=== PATIENT | male | born 1950 | race Caucasian/White ===

== ENCOUNTER 2018-02-08 07:08 | Outpatient (CLI) | payer MEDICARE, OTHER ==
[2018-02-08 14:13] LABS: ALBUMIN 4.1 g/dL (3.2-5.5); ALBUMIN/GLOBULIN RATIO 1.5 (1.0-2.2); ALKALINE PHOSPHATASE 37 IU/L (42-121); ALT ALANINE AMINOTRANSFERASE 23 IU/L (10-60); AST ASPARTATE AMINOTRANSFERASE 23 IU/L (10-42); BILIRUBIN,TOTAL 0.9 mg/dL (0.2-1.0); BUN - BLOOD UREA NITROGEN 27 mg/dL (6-20); CARBON DIOXIDE - CO2 26 mmol/L (21-32); CHLORIDE 106 mmol/L (101-111); CHOL/HDL RATIO 3.9 (<5.0); CHOLESTEROL 212 mg/dL; CREATININE 1.1 mg/dL (0.6-1.2); GFR - MDRD 67 (>89); GLUCOSE 108 mg/dL (70-100); HDL CHOLESTEROL 55 mg/dL; LDL CHOLESTEROL,CALCULATED 128 mg/dL; LDL/HDL RATIO 2.3 (<3.6); SODIUM 138 mmol/L (135-145); TOTAL PROTEIN 6.9 g/dL (6.7-8.2); VLDL CHOLESTEROL 29 mg/dL
== END 2018-02-08 07:09 | disposition home or self-care (01) ==
LOC: LAB.F 07:08
PROVIDERS: ATTEND Internal Medicine
DX: R97.20 Elevated prostate specific antigen [PSA] (principal); I10 Essential (primary) hypertension
CPT/HCPCS: 36415; 80053; 80061; 83721; 84153

== ENCOUNTER 2018-09-30 20:46 | Emergency (ER) | payer MEDICARE, OTHER ==
--- NOTE | 2018-09-30 21:05 | ED Physician Documentation ---
History of Present Illness - Stated complaint Stated Complaint: HIGH BP - Chief complaint Chief Complaint: Neuro - History obtained from History obtained from: Patient - History of Present Illness Timing: Prior to arrival - Additonal information Additional information: This is a 68-year-old man who presents with complaints that his blood pressure spiked tonight. He has been feeling off for about a week just, having some intermittent headachesHe felt fine this morning in fact [place] and a little bit lightheaded.. Around 2:00 in the afternoon he noticed that he had a headache when he stood up so he decided to check his blood pressure which normally runs in the 140s over 80s and it was like 193/91. He subsequently checked it several times and it remained elevated he even went to [facility] to make sure that his machine was working properly and checked it there. He took his lisinopril 20 mg at 5:30 in the evening. He is been on that for 10 years. When his blood pressure remained elevated he took an additional half tablet of the lisinopril around 7:00. Patient was in [facility] at the end of July for a TURP and at that time his blood pressure was normal. He does not remember checking it since then however his INR was 3.7 last week and they adjusted his Coumadin dosing. 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 He denies chest pain or shortness of breath. He said no nausea or vomiting. He has been very fatigued. One day this past week he woke up with a swollen painful foot he still has a little bit of discomfort in it but the swelling has resolved. Patient does have a history of A. fib but underwent ablation in 2007 without recurrence. He does drink 1 cup of coffee every day. 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 Review of Systems Constitutional: reports: Fatigue. denies: Fever Eyes: denies: Decreased vision Nose: denies: Rhinorrhea / runny nose Throat: denies: Sore throat Cardiac: denies: Chest pain / pressure, Palpitations, Pedal edema Respiratory: denies: Dyspnea, Cough GI: denies: Nausea, Vomiting : denies: Dysuria Skin: denies: Rash Musculoskeletal: reports: Joint pain (Left ankle now resolved) Neurologic: denies: Focal weakness, Numbness Endocrine: reports: Easy bruising / bleeding (Patient does take Coumadin) Immunocompromised: denies: Immunocompromised PD PAST MEDICAL HISTORY - Allergies Allergies/Adverse Reactions: Allergies Allergy/AdvReac Type Severity Reaction Status Date / Time No Known Drug Allergies Allergy Verified 09/30/18 20:52 PD ED PE NORMAL - Vitals Vital signs reviewed: Yes - General General: Alert and oriented X 3, No acute distress, Well developed/nourished - HEENT HEENT: Atraumatic, PERRL, EOMI, Moist mucous membranes - Neck Neck: Supple, no meningeal sign, No adenopathy, No JVD - Cardiac Cardiac: RRR, No murmur - Respiratory Respiratory: No respiratory distress, Clear bilaterally - Abdomen Abdomen: Normal bowel sounds, Soft, Non tender - Derm Derm: Normal color, Warm and dry, No rash - Extremities Extremities: No edema - Neuro Neuro: Alert and oriented X 3, 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, No motor deficit, No sensory deficit, Normal speech - Psych Psych: Normal mood, Normal affect Results - Vitals Vitals: Vital Signs - 24 hr 09/30/18 09/30/18 09/30/18 20:49 21:14 21:26 Temperature 36.2 C L Heart Rate 62 83 60 Respiratory 16 16 12 Rate Blood Pressure 213/90 H 193/93 H 175/90 H O2 Saturation 98 97 97 Oxygen O2 Source Room air - EKG (time done) 2229 Rate: Rate (enter#) Rhythm: NSR Intervals: RBBB Ischemia: Non specific changes Compare to prior EKG: Old EKG unavailable Computer interpretation: Agree with computer - Labs Labs: Laboratory Tests 09/30/18 09/30/18 09/30/18 21:11 21:11 21:11 WBC 7.0 RBC 4.87 Hgb 15.0 Hct 46.6 MCV 95.7 H MCH 30.8 MCHC 32.2 RDW 14.0 Plt Count 167 MPV 10.1 Neut # (Auto) 3.8 Lymph # (Auto) 2.1 [place] # (Auto) 0.8 Eos # (Auto) 0.2 Baso # (Auto) 0.1 Absolute Nucleated RBC 0.00 Nucleated RBC % 0.0 PT 25.8 H INR 2.3 H Sodium 141 Potassium 3.8 Chloride 102 Carbon Dioxide 26 Anion Gap 13.0 BUN 28 H Creatinine 1.1 Estimated GFR (MDRD) 67 L Glucose 102 H Calcium 9.9 Urine Color Urine Clarity Urine pH Ur Specific [place] Urine Protein Urine Glucose (UA) Urine Ketones Urine Occult Blood Urine Nitrite Urine Bilirubin Urine Urobilinogen Ur Leukocyte Esterase Urine RBC Urine WBC Ur Squamous Epith Cells Urine Bacteria Ur Microscopic Review Urine Culture Comments 09/30/18 22:08 WBC RBC Hgb Hct MCV MCH MCHC RDW Plt Count MPV Neut # (Auto) Lymph # (Auto) [place] # (Auto) Eos # (Auto) Baso # (Auto) Absolute Nucleated RBC Nucleated RBC % PT INR Sodium Potassium Chloride Carbon Dioxide Anion Gap BUN Creatinine Estimated GFR (MDRD) Glucose Calcium Urine Color YELLOW Urine Clarity CLEAR Urine pH 6.0 Ur Specific [place] 1.015 Urine Protein NEGATIVE Urine Glucose (UA) NEGATIVE Urine Ketones NEGATIVE Urine Occult Blood MODERATE H Urine Nitrite NEGATIVE Urine Bilirubin NEGATIVE Urine Urobilinogen 0.2 (NORMAL) Ur Leukocyte Esterase TRACE H Urine RBC 0-5 Urine WBC 4-5 Ur Squamous Epith Cells NONE SEEN Urine Bacteria None Seen Ur Microscopic Review INDICATED Urine Culture Comments INDICATED PD MEDICAL DECISION MAKING - ED course Complexity details: reviewed results, re-evaluated patient, d/w patient, d/w family ED course: Patient does have a bundle branch block on his EKG. There is no old one available for comparison. He is not aware of having had one previously. Does not appear to have any ischemic changes. BUN and creatinine are essentially normal minimal elevation of electrolytes. Pro time was 2.3. Urine is clear without protein in it. He was given clonidine 0.1 mg orally and repeat blood pressures came down into 160 systolic. With a lengthy discussion about why his blood pressure could have now be up versus him being on the lisinopril for the past 10 years without any difficulty. Encouraged him to keep a log of his blood pressures through the weekend and follow-up with his primary care provider next week to see whether or not he needs to have adjustments made on his medication. Departure - Departure Disposition: 01 Home, Self Care Clinical Impression: Headache Qualifiers: Headache type: unspecified Headache chronicity pattern: unspecified pattern Hypertension Qualifiers: Hypertension type: essential hypertension Qualified Code(s): I10 - Essential (primary) hypertension Condition: Good Instructions: ED HTN Established Follow-Up: John Rachel MD [Primary Care Provider] - Comments: Continue to take your normal dose of lisinopril. I would only monitor your blood pressures twice a day the morning and evening and take a log with you to your doctor's appointment next week for discussion on whether or not you need to adjust your hypertension medicine. Return if you have increasing headache, develop chest pain or shortness of breath, you are not urinating or other problems or
[2018-09-30 21:15] LABS: BASOPHILS # (AUTO) 0.1 10^3/uL (0.0-0.1); BASOPHILS % (AUTO) 0.9 %; EOSINOPHILS # (AUTO) 0.2 10^3/uL (0.0-0.7); EOSINOPHILS % (AUTO) 2.7 %; LYMPHOCYTES # (AUTO) 2.1 10^3/uL (1.5-3.5); LYMPHOCYTES % (AUTO) 30.3 %; MEAN CORPUSCULAR HEMOGLOBIN 30.8 pg (27.0-31.0); MEAN CORPUSCULAR HGB CONC 32.2 g/dL (32.0-36.0); MEAN CORPUSCULAR VOLUME 95.7 fL (80.0-94.0); MEAN PLATELET VOLUME 10.1 fL (7.4-11.4); MONOCYTES # (AUTO) 0.8 10^3/uL (0.0-1.0); NEUTROPHILS # (AUTO) 3.8 10^3/uL (1.5-6.6); NEUTROPHILS % (AUTO) 53.8 %; PLT - PLATELET COUNT 167 10^3/uL (130-450); RED BLOOD COUNT 4.87 10^6/uL (4.70-6.10)
[2018-09-30] MEDS ORDERED: cloNIDine 0.1 MG TABLET PO STA (21:21)
[2018-09-30 21:26] LABS: CALCIUM 9.9 mg/dL (8.5-10.3); CREATININE 1.1 mg/dL (0.6-1.2)
[2018-09-30 21:35] LABS: INR 2.3 (0.8-1.2); PT - PROTHROMBIN TIME 25.8 secs (9.9-12.6)
[2018-09-30 22:31] LABS: BILIRUBIN,URINE NEGATIVE (NEGATIVE); GLUCOSE, URINE (UA) NEGATIVE (NEGATIVE); KETONES,URINE (UA) NEGATIVE (NEGATIVE); LEUKOCYTE ESTERASE, URINE TRACE (NEGATIVE); NITRITE,URINE NEGATIVE (NEGATIVE); OCCULT BLOOD,URINE MODERATE (NEGATIVE); PROTEIN,URINE NEGATIVE (NEGATIVE); UROBILINOGEN,URINE 0.2 (NORMAL) E.U./dL (NORMAL)
[2018-09-30 22:33] LABS: CLARITY,URINE CLEAR (CLEAR)
[2018-09-30 22:48] LABS: BACTERIA,URINE None Seen /HPF (None Seen); RBC,URINE 0-5 /HPF (0-5); SQUAMOUS EPITHELIAL CELL,UR NONE SEEN (<= Few)
[2018-09-30 23:03] VITALS: BP 153/85
== END 2018-09-30 23:05 | disposition home or self-care (01) ==
LOC: ED 20:46
DX: I10 Essential (primary) hypertension (principal); R51 Headache; I45.2 Bifascicular block; M25.572 Pain in left ankle and joints of left foot; D68.8 Other specified coagulation defects; Z79.01 Long term (current) use of anticoagulants
CPT/HCPCS: 36415; 80048; 81001; 85025; 85610; 87086; 93005; 99283; 99284; A9270; 81003

== ENCOUNTER 2021-06-02 08:52 | Day surgery (SDC) | payer MEDICARE, OTHER ==
[2021-06-02 09:29] LABS: BASOPHILS # (AUTO) 0.1 10^3/uL (0.0-0.1); BASOPHILS % (AUTO) 0.7 %; EOSINOPHILS # (AUTO) 0.1 10^3/uL (0.0-0.7); EOSINOPHILS % (AUTO) 1.1 %; HCT - HEMATOCRIT 50.9 % (42.0-52.0); LYMPHOCYTES # (AUTO) 1.5 10^3/uL (1.5-3.5); LYMPHOCYTES % (AUTO) 14.3 %; MEAN CORPUSCULAR HEMOGLOBIN 31.8 pg (27.0-31.0); MEAN CORPUSCULAR HGB CONC 33.4 g/dL (32.0-36.0); MEAN CORPUSCULAR VOLUME 95.1 fL (80.0-94.0); MEAN PLATELET VOLUME 9.8 fL (7.4-11.4); MONOCYTES % (AUTO) 10.1 %; NEUTROPHILS # (AUTO) 7.5 10^3/uL (1.5-6.6); NEUTROPHILS % (AUTO) 73.4 %; PLT - PLATELET COUNT 171 10^3/uL (130-450); RED BLOOD COUNT 5.35 10^6/uL (4.70-6.10); RED CELL DISTRIBUTION WIDTH 13.4 % (12.0-15.0); WHITE BLOOD COUNT 10.2 x10^3/uL (4.8-10.8)
[2021-06-02 09:44] LABS: ALBUMIN 4.4 g/dL (3.2-5.5); ALBUMIN/GLOBULIN RATIO 1.4 (1.0-2.2); BILIRUBIN,TOTAL 1.2 mg/dL (0.2-1.0); CALCIUM 9.4 mg/dL (8.5-10.3); CREATININE 1.3 mg/dL (0.6-1.2); POTASSIUM 4.4 mmol/L (3.5-5.0); TOTAL PROTEIN 7.6 g/dL (6.7-8.2)
[2021-06-02 10:07] LABS: BILIRUBIN,URINE NEGATIVE (NEGATIVE); CLARITY,URINE CLEAR (CLEAR); GLUCOSE, URINE (UA) NEGATIVE (NEGATIVE); KETONES,URINE (UA) NEGATIVE (NEGATIVE); LEUKOCYTE ESTERASE, URINE NEGATIVE (NEGATIVE); NITRITE,URINE NEGATIVE (NEGATIVE); OCCULT BLOOD,URINE NEGATIVE (NEGATIVE); PROTEIN,URINE NEGATIVE (NEGATIVE); UROBILINOGEN,URINE 0.2 (NORMAL) E.U./dL (NORMAL)
[2021-06-02] MEDS ORDERED: SODIUM CHLORIDE 0.9% 1,000 ML IV STA (11:17)
--- NOTE | 2021-06-02 11:20 | ED Physician Documentation ---
PD HPI ABD PAIN - Stated complaint Stated Complaint: ABD PX - Chief complaint Chief Complaint: Abd Pain - History obtained from History obtained from: Patient - Treatment prior to arrival Treatment prior to arrival: The patient comes to the emergency department chief complaint of right-sided abdominal pain over the last few days. He states it started 2 days ago when he did a big workout and then ate 2 bowls of chili. He figured he had just strained his abdominal musculature, but he states that the pain is gotten worse since. He denies any nausea, vomiting, or bowel changes. No urinary symptoms. No fevers or chills. No appetite change. He still has his gallbladder and appendix. Food does not seem to affect the symptoms. No other complaints at this time. Review of Systems Ten Systems: 10 systems reviewed and negative Constitutional: reports: Reviewed and negative Eyes: reports: Reviewed and negative Ears: reports: Reviewed and negative Nose: reports: Reviewed and negative Throat: reports: Reviewed and negative Cardiac: reports: Reviewed and negative Respiratory: reports: Reviewed and negative GI: reports: Abdominal Pain : reports: Reviewed and negative Skin: reports: Reviewed and negative Musculoskeletal: reports: Reviewed and negative Neurologic: reports: Reviewed and negative Psychiatric: reports: Reviewed and negative Endocrine: reports: Reviewed and negative Immunocompromised: reports: Reviewed and negative PD PAST MEDICAL HISTORY - Past Medical History Cardiovascular: Hypertension, Atrial fibrillation - Past Surgical History Past Surgical History: Yes Ortho: Knee replacement Cardiovascular: Other - Present Medications Home Medications: Ambulatory Orders Medication Instructions Recorded Confirmed Gabapentin [Neurontin] 300 mg PO HS 06/02/21 06/02/21 Lisinopril [Zestril] 20 mg PO DAILY 06/02/21 06/02/21 Ondansetron Odt [Zofran Odt] 4 mg TL Q6H PRN #10 tablet 06/02/21 Ondansetron Odt [Zofran Odt] 4 mg TL Q6H PRN #10 tablet 06/02/21 Pramipexole [Mirapex] 0.5 mg PO DAILY 06/02/21 06/02/21 Rivaroxaban [Xarelto] 20 mg PO DAILY 06/02/21 06/02/21 oxyCODONE [Roxicodone] 5 mg PO Q4-6H PRN #14 tablet 06/02/21 - Allergies Allergies/Adverse Reactions: Allergies Allergy/AdvReac Type Severity Reaction Status Date / Time No Known Drug Allergies Allergy Verified 06/02/21 09:08 - Social History Does the pt smoke?: No Smoking Status: Never smoker Does the pt drink ETOH?: Yes Does the pt have substance abuse?: No - Immunizations Immunizations are current?: No - POLST Patient has POLST: No PD ED PE NORMAL - Vitals Vital signs reviewed: Yes - General General: Alert and oriented X 3, No acute distress, Well developed/nourished - HEENT HEENT: Atraumatic, PERRL, EOMI, Moist mucous membranes - Neck Neck: Supple, no meningeal sign - Cardiac Cardiac: RRR, No murmur, Strong equal pulses - Respiratory Respiratory: No respiratory distress, Clear bilaterally - Abdomen Abdomen: Soft, Non distended, Other (Moderate right lower quadrant tenderness no rebound or guarding. Mild right flank tenderness. No right upper quadrant tenderness) - Back Back: No CVA TTP - Derm Derm: Normal color, Warm and dry, No rash - Extremities Extremities: No deformity, No edema, No calf tenderness / cord - Neuro Neuro: Alert and oriented X 3, rn clinical documentation 2-12 intact, No motor deficit, No sensory deficit, Normal speech - Psych Psych: Normal mood, Normal affect Results - Vitals Vitals: Vital Signs - 24 hr 06/02/21 06/02/21 06/02/21 09:05 11:08 13:00 Temperature 36.2 C L 36.7 C Heart Rate 74 66 78 Respiratory 12 16 15 Rate Blood Pressure 173/89 H 143/70 H 157/70 H O2 Saturation 96 99 99 06/02/21 06/02/21 06/02/21 15:23 15:32 15:35 Temperature 36.4 C L 36.3 C L 36.6 C Heart Rate 72 68 65 Respiratory 20 13 16 Rate Blood Pressure 120/90 H 139/77 H 138/68 H O2 Saturation 95 98 99 06/02/21 06/02/21 06/02/21 15:44 15:48 15:52 Temperature 36.9 C 36.9 C 36.6 C Heart Rate 68 65 64 Respiratory 16 14 16 Rate Blood Pressure 139/75 H 137/76 H 139/85 H O2 Saturation 95 96 99 06/02/21 06/02/21 06/02/21 16:12 16:36 16:57 Temperature 36.5 C 36.5 C 36.5 C Heart Rate 61 67 63 Respiratory 18 19 19 Rate Blood Pressure 132/66 H 150/70 H 133/70 H O2 Saturation 97 96 96 06/02/21 17:26 Temperature 36.5 C Heart Rate 65 Respiratory 18 Rate Blood Pressure 132/66 H O2 Saturation 96 Oxygen O2 Source Room air - Labs Labs: Laboratory Tests 06/02/21 06/02/21 06/02/21 09:24 09:24 09:42 WBC 10.2 RBC 5.35 Hgb 17.0 Hct 50.9 MCV 95.1 H MCH 31.8 H MCHC 33.4 RDW 13.4 Plt Count 171 MPV 9.8 Neut # (Auto) 7.5 H Lymph # (Auto) 1.5 [place] # (Auto) 1.0 Eos # (Auto) 0.1 Baso # (Auto) 0.1 Absolute Nucleated RBC 0.00 Nucleated RBC % 0.0 Sodium 137 Potassium 4.4 Chloride 100 L Carbon Dioxide 26 Anion Gap 11.0 BUN 23 H Creatinine 1.3 H Estimated GFR (MDRD) 54 L Glucose 109 H Calcium 9.4 Total Bilirubin 1.2 H AST 17 ALT 17 Alkaline Phosphatase 41 L Total Protein 7.6 Albumin 4.4 Globulin 3.2 Albumin/Globulin Ratio 1.4 Lipase 32 Urine Color YELLOW Urine Clarity CLEAR Urine pH 6.0 Ur Specific [place] <=1.005 Urine Protein NEGATIVE Urine Glucose (UA) NEGATIVE Urine Ketones NEGATIVE Urine Occult Blood NEGATIVE Urine Nitrite NEGATIVE Urine Bilirubin NEGATIVE Urine Urobilinogen 0.2 (NORMAL) Ur Leukocyte Esterase NEGATIVE Ur Microscopic Review NOT INDICATED Urine Culture Comments NOT INDICATED Nasal Adenovirus (PCR) Nasal B. parapertussis DNA (PCR) Nasal Coronavir 229E PCR Nasal Coronavir HKU1 PCR Nasal Coronavir NL63 PCR Nasal Coronavir OC43 PCR Nasal Enterovir/Rhinovir PCR Nasal Influenza B PCR Nasal Influenza A PCR Nasal Parainfluen 1 PCR Nasal Parainfluen 2 PCR Nasal Parainfluen 3 PCR Nasal Parainfluen 4 PCR Nasal RSV (PCR) Nasal B.pertussis DNA PCR Nasal C.pneumoniae (PCR) [place] Human Metapneumo PCR Nasal M.pneumoniae (PCR) Nasal SARS-CoV-2 (PCR) 06/02/21 13:11 WBC RBC Hgb Hct MCV MCH MCHC RDW Plt Count MPV Neut # (Auto) Lymph # (Auto) [place] # (Auto) Eos # (Auto) Baso # (Auto) Absolute Nucleated RBC Nucleated RBC % Sodium Potassium Chloride Carbon Dioxide Anion Gap BUN Creatinine Estimated GFR (MDRD) Glucose Calcium Total Bilirubin AST ALT Alkaline Phosphatase Total Protein Albumin Globulin Albumin/Globulin Ratio Lipase Urine Color Urine Clarity Urine pH Ur Specific [place] Urine Protein Urine Glucose (UA) Urine Ketones Urine Occult Blood Urine Nitrite Urine Bilirubin Urine Urobilinogen Ur Leukocyte Esterase Ur Microscopic Review Urine Culture Comments Nasal Adenovirus (PCR) NOT DETECTED Nasal B. parapertussis DNA (PCR) NOT DETECTED Nasal Coronavir 229E PCR NOT DETECTED Nasal Coronavir HKU1 PCR NOT DETECTED Nasal Coronavir NL63 PCR NOT DETECTED Nasal Coronavir OC43 PCR NOT DETECTED Nasal Enterovir/Rhinovir PCR NOT DETECTED Nasal Influenza B PCR NOT DETECTED Nasal Influenza A PCR NOT DETECTED Nasal Parainfluen 1 PCR NOT DETECTED Nasal Parainfluen 2 PCR NOT DETECTED Nasal Parainfluen 3 PCR NOT DETECTED Nasal Parainfluen 4 PCR NOT DETECTED Nasal RSV (PCR) NOT DETECTED Nasal B.pertussis DNA PCR NOT DETECTED Nasal C.pneumoniae (PCR) NOT DETECTED [place] Human Metapneumo PCR NOT DETECTED Nasal M.pneumoniae (PCR) NOT DETECTED Nasal SARS-CoV-2 (PCR) NOT DETECTED - Rads (name of study) CT abdomen and pelvis Radiology: Final report received, EMP read indepedently, See rad report (Acute appendicitis) PD MEDICAL DECISION MAKING - ED course Complexity details: reviewed results, re-evaluated patient, considered differential, d/w patient ED course: The patient was worked up with labs and CT scan of the abdomen and pelvis. He declined symptomatic treatment in the emergency department. The patient CT scan showed acute appendicitis. I consulted Dr. Fields, who saw the patient in the emergency department and agreed to admit him to her service. He was given a dose of Zosyn at her request. Departure - Departure Disposition: ED Transfer to [facility] Clinical Impression: Acute appendicitis Qualifiers: Acute appendicitis type: with localized peritonitis Appendicitis gangrene presence: without gangrene Appendicitis perforation presence: without perforation Appendicitis abscess presence: without abscess Qualified Code(s): K35.30 - Acute appendicitis with localized peritonitis, without perforation or gangrene Condition: Serious Discharge Date/Time: 06/02/21 14:22
[2021-06-02] MEDS ORDERED: IOVERSOL 320 100 ML VIAL IVP ONE ×2 (12:22→12:44)
--- NOTE | 2021-06-02 12:46 | CT Report ---
PROCEDURE: Abdomen/Pelvis W INDICATIONS: RLQ abd pain CONTRAST: IV CONTRAST: Optiray 320 ml: 100 PO CONTRAST: *NO PO CONTRAST TECHNIQUE: After the administration of intravenous contrast, 5 mm thick sections acquired from the diaphragms to the symphysis. 5 mm thick coronal and sagittal reformats were acquired. For radiation dose reducti on, the following was used: automated exposure control, adjustment of mA and/or kV according to [place] ent size. COMPARISON: None. FINDINGS: Image quality: Excellent. ABDOMEN: Lung bases: Lung bases are clear. Heart size is normal. Small hiatal hernia. Solid organs: Liver is normal in size. Enhancing focus in the right lobe of liver, (3/25). Question o f hepatic steatosis. Gallbladder is unremarkable. Biliary system is non dilated. Pancreas enhances normally. No splenomegaly. No adrenal nodules. Kidneys demonstrate normal size and enhancement, with out hydronephrosis. Peritoneum and bowel: No small bowel obstruction. A few colonic diverticuli. The appendix is dilated measuring 1.6 cm, (3/65). There is surrounding inflammatory change and wall thickening. No fluid gerda ection. No free air. Nodes and vessels: No retroperitoneal or mesenteric adenopathy by size criteria. Aorta and inferior vena cava are normal in size. Moderate plaque. Miscellaneous: No ventral hernias. PELVIS: Genitourinary: There is a small kidney stone in the region of the right UVJ measuring 0.3 cm, (385). No right hydroureter. Prostatomegaly. Miscellaneous: Right greater than left fat-containing inguinal hernias. No adenopathy. Bones: No suspicious bony lesions. No vertebral body compression fractures. IMPRESSION: 1. Acute appendicitis. No rupture demonstrated. 2. Kidney stone near the right UVJ measuring 0.3 cm. No right hydroureteronephrosis. 3. Enhancing focus in the liver. This is indeterminate but could represent a flash filling hemangioma . -This could be further characterized with liver MRI or multiphase liver CT. Ultrasound may be helpful . 4. Fat-containing inguinal hernias. Results were communicated to Dr. Bere Nogueira at 06/02/2021 11:44 AM JESUS. Reviewed by: Casey Jefferson MD on 06/02/2021 11:45 AM JESUS Approved by: Casey Jefferson MD on 06/02/2021 11:45 AM JESUS Station ID: [id number]
--- NOTE | 2021-06-02 13:08 | HISTORY & PHYSICAL EXAMINATION ---
HPI - Admitted From Admitted from: ED - History Obtained From History obtained from: Patient Exam limitations: No limitations - History of Present Illness Pain/Problem Location Description: Right lower quadrant pain Severity at the worst: reports: Moderate Pain Quality: reports: Aching Context-Pain started w/: reports: Rest Timing: reports: Abrupt onset (Patient reports he woke up with pain yesterday morning) Duration: reports: Hours: (36) Improved with: reports: Nothing Worsened by: reports: Exertion, Inspiration, Movement, Palpation Associated symptoms: denies: Nausea, Vomiting HPI Comment/Other: Very pleasant 71-year-old gentleman woke up with abdominal pain yesterday morning. He says it was initially a little more generalized but gradually localized to the right lower quadrant. He says he thought it was muscular at first and so he continued to eat and walk around but when it did not get better he decided he should come to the emergency room this morning.His last meal was last evening about 7 PM. He takes Xarelto for paroxysmal atrial fibrillation but he has not had his dose today. He reports he takes it first thing in the morning and his last dose was yesterday at breakfast.He has not had difficulty with paroxysmal A. fib since his ablation but he has continued on the medication as precaution.He denies any sick contacts and denies any nausea. PMH/PSH - Past Medical History Cardiovascular: positive: Hypertension, Atrial fibrillation MRSA Hx?: No - Past Surgical History Ortho: positive: Knee replacement Cardiovascular: positive: Other Social & Family Hx - Living Situation Living Arrangement: At home - Social History Does the pt smoke?: No Smoking Status: Never smoker Does the pt drink ETOH?: Yes Does the pt have substance abuse?: No - POLST Patient has POLST: No Meds/Allgy - Home Medications Home Medications: Ambulatory Orders Medication Instructions Recorded Confirmed Gabapentin [Neurontin] 300 mg PO HS 06/02/21 06/02/21 Lisinopril [Zestril] 20 mg PO DAILY 06/02/21 06/02/21 Pramipexole [Mirapex] 0.5 mg PO DAILY 06/02/21 06/02/21 Rivaroxaban [Xarelto] 20 mg PO DAILY 06/02/21 06/02/21 - Allergies Allergies/Adverse Reactions: Allergies Allergy/AdvReac Type Severity Reaction Status Date / Time No Known Drug Allergies Allergy Verified 06/02/21 09:08 Review of Systems - Gastrointestinal Gastrointestinal: reports: Abdominal pain. denies: Nausea, Vomiting Exam - Vital Signs Reviewed Vital Signs: Yes Vital Signs: Vital Signs x48h Temp Pulse Resp BP Pulse Ox 06/02/21 11:08 66 16 143/70 H 99 06/02/21 09:05 36.2 C L 74 12 173/89 H 96 - Physical Exam General Appearance: positive: No acute distress, Alert Eyes Bilateral: positive: Normal inspection, PERRL, EOMI ENT: positive: ENT inspection nml Neck: positive: Nml inspection Respiratory: positive: No respiratory distress, Breath sounds nml Cardiovascular: positive: Regular rate & rhythm Abdomen: positive: Nml bowel sounds, Tenderness, Guarding. negative: Rebound Skin: positive: Color nml Extremities: positive: Non-tender, Pedal edema Neurologic/Psychiatric: positive: Oriented x3 Results - Lab Results Fish Bones: 06/02/21 09:24 06/02/21 09:24 Other Lab Results: Lab Results x24hrs 06/02/21 06/02/21 06/02/21 Range/Units 09:42 09:24 09:24 WBC 10.2 (4.8-10.8) x10^3/uL RBC 5.35 (4.70-6.10) 10^6/uL Hgb 17.0 (14.0-18.0) g/dL Hct 50.9 (42.0-52.0) % MCV 95.1 H (80.0-94.0) fL MCH 31.8 H (27.0-31.0) pg MCHC 33.4 (32.0-36.0) g/dL RDW 13.4 (12.0-15.0) % Plt Count 171 (130-450) 10^3/uL MPV 9.8 (7.4-11.4) fL Neut # (Auto) 7.5 H (1.5-6.6) 10^3/uL Lymph # (Auto) 1.5 (1.5-3.5) 10^3/uL [place] # (Auto) 1.0 (0.0-1.0) 10^3/uL Eos # (Auto) 0.1 (0.0-0.7) 10^3/uL Baso # (Auto) 0.1 (0.0-0.1) 10^3/uL Absolute Nucleated RBC 0.00 x10^3/uL Nucleated RBC % 0.0 /100WBC Sodium 137 (135-145) mmol/L Potassium 4.4 (3.5-5.0) mmol/L Chloride 100 L (101-111) mmol/L Carbon Dioxide 26 (21-32) mmol/L Anion Gap 11.0 (6-13) BUN 23 H (6-20) mg/dL Creatinine 1.3 H (0.6-1.2) mg/dL Estimated GFR (MDRD) 54 L (>89) Glucose 109 H (70-100) mg/dL Calcium 9.4 (8.5-10.3) mg/dL Total Bilirubin 1.2 H (0.2-1.0) mg/dL AST 17 (10-42) IU/L ALT 17 (10-60) IU/L Alkaline Phosphatase 41 L (42-121) IU/L Total Protein 7.6 (6.7-8.2) g/dL Albumin 4.4 (3.2-5.5) g/dL Globulin 3.2 (2.1-4.2) g/dL Albumin/Globulin Ratio 1.4 (1.0-2.2) Lipase 32 (22-51) U/L Urine Color YELLOW Urine Clarity CLEAR (CLEAR) Urine pH 6.0 (5.0-7.5) PH Ur Specific [place] <=1.005 (1.002-1.030) Urine Protein NEGATIVE (NEGATIVE) mg/dL Urine Glucose (UA) NEGATIVE (NEGATIVE) mg/dL Urine Ketones NEGATIVE (NEGATIVE) mg/dL Urine Occult Blood NEGATIVE (NEGATIVE) Urine Nitrite NEGATIVE (NEGATIVE) Urine Bilirubin NEGATIVE (NEGATIVE) Urine Urobilinogen 0.2 (NORMAL) (NORMAL) E.U./dL Ur Leukocyte Esterase NEGATIVE (NEGATIVE) Ur Microscopic Review NOT INDICATED Urine Culture Comments NOT INDICATED - Diagnostic Imaging Results Diagnostic Imaging Results Comments: CT shows acute appendicitis without evidence of rupture as well as bilateral fat-containing inguinal hernias and a possible liver hemangioma.He is also noted to have a small right kidney stone. - EKG Results EKG Interpreted Independently: No Impression/Plan - Problem List Problem List: Acute appendicitis in the setting of an active 71-year-old gentleman with a personal history of paroxysmal atrial fibrillation and hypertension. We discussed the risk benefits and alternatives to laparoscopy with appendectomy the patient is expressed verbal and written consent to proceed.
[2021-06-02] MEDS ORDERED: PIPERACILLIN/TAZOBACTAM 4.5 GM in SODIUM CHLORIDE 0.9% MINIBAG 100 ML IV STA (13:09)
[2021-06-02] MEDS ORDERED: BUPIVACAINE 0.5% PF 10 ML VIAL ONE (13:17)
[2021-06-02] MEDS ORDERED: LIDOCAINE MPF 2%-EPI 1:200000 20 ML VIAL ONE (13:17)
[2021-06-02] MEDS ORDERED: fentaNYL 100 MCG/2 ML VIAL ONE (13:23)
--- NOTE | 2021-06-02 13:23 | ANESTHESIA ---
Pre-Anesthesia VS, & Labs - Diagnosis appendecitis - Procedure laparoscopic appendectomy Vital Signs: Temp Pulse Resp BP Pulse Ox 36.7 C 78 15 157/70 H 99 06/02/21 13:00 06/02/21 13:00 06/02/21 13:00 06/02/21 13:00 06/02/21 13:00 Height: 6 ft 6 in Weight (kg): 122.47 kg Body Mass Index: 31.1 BMI Classification: Obese - NPO >8 hours - Lab Results Current Lab Results: Laboratory Tests 06/02/21 09:24: Sodium 137, Potassium 4.4, Chloride 100 L, Carbon Dioxide 26, Anion Gap 11.0, BUN 23 H, Creatinine 1.3 H, Estimated GFR (MDRD) 54 L, Glucose 109 H, Calcium 9.4, Total Bilirubin 1.2 H, AST 17, ALT 17, Alkaline Phosphatase 41 L, Total Protein 7.6, Albumin 4.4, Globulin 3.2, Albumin/Globulin Ratio 1.4, Lipase 32 06/02/21 09:24: WBC 10.2, RBC 5.35, Hgb 17.0, Hct 50.9, MCV 95.1 H, MCH 31.8 H, MCHC 33.4, RDW 13.4, Plt Count 171, MPV 9.8, Neut # (Auto) 7.5 H, Lymph # (Auto) 1.5, [place] # (Auto) 1.0, Eos # (Auto) 0.1, Baso # (Auto) 0.1, Absolute Nucleated RBC 0.00, Nucleated RBC % 0.0 Lab results reviewed: Yes Fish Bones: 06/02/21 09:24 06/02/21 09:24 Home Medications and Allergies Home Medications: Ambulatory Orders Gabapentin [Neurontin] 300 mg PO HS 06/02/21 Lisinopril [Zestril] 20 mg PO DAILY 06/02/21 Pramipexole [Mirapex] 0.5 mg PO DAILY 06/02/21 Rivaroxaban [Xarelto] 20 mg PO DAILY 06/02/21 Active Medications Piperacillin Sod/Tazobactam (Sod 4.5 gm/ Sodium Chloride) 100 mls @ 100 mls/hr IV ONCE STA Stop: 06/02/21 14:08 Gabapentin [Neurontin] 300 mg PO HS 06/02/21 Lisinopril [Zestril] 20 mg PO DAILY 06/02/21 Pramipexole [Mirapex] 0.5 mg PO DAILY 06/02/21 Rivaroxaban [Xarelto] 20 mg PO DAILY 06/02/21 Allergies/Adverse Reactions: Allergies Allergy/AdvReac Type Severity Reaction Status Date / Time No Known Drug Allergies Allergy Verified 06/02/21 09:08 Anes History & Medical History - Anesthetic History Anesthesia Complications: reports: No previous complications Family history of Anesthesia Complications: Denies Family history of Malignant Hyperthermia: Denies - Medical History Cardiovascular: reports: Hypertension, Atrial fibrillation Smoking Status: Never smoker Other Past Medical History: on xarelto. last dos 06/01/21 AM - Surgical History Cardiothoracic: reports: Other Urologic: reports: Prostatic surgery Orthopedic: reports: Knee replacement Exam General: Alert, Oriented x3, Cooperative, No acute distress Dental: WNL Mouth Openin Fingerbreadth Neck Mobility: Normal Mallampati classification: II Plan Anesthesia Type: General Consent for Procedure(s) Verified and Reviewed: Yes Code Status: Attempt Resuscitation ASA classification: 3-Severe systemic disease Is this case an emergency?: No
[2021-06-02] MEDS ORDERED: LIDOCAINE-MPF 2% 5 ML VIAL ONE (13:24)
[2021-06-02] MEDS ORDERED: DEXAMETHASONE 4 MG/ML VIAL ONE (13:24)
[2021-06-02] MEDS ORDERED: ONDANSETRON 4 MG/2 ML VIAL ONE (13:24)
[2021-06-02] MEDS ORDERED: PROPOFOL 200 MG/20 ML VIAL IVP ONE (13:24)
[2021-06-02] MEDS ORDERED: KETOROLAC 30 MG/ML VIAL ONE (13:24)
[2021-06-02] MEDS ORDERED: ROCURONIUM 50 MG/5 ML VIAL ONE (13:24)
[2021-06-02 14:09] LABS: B. PARAPERTUSSIS- RESP PCR PAN NOT DETECTED; B. PERTUSSIS- RESP PCR PANEL NOT DETECTED; C. PNEUMONIAE- RESP PCR PANEL NOT DETECTED; CORONAVIRUS 229E-RESP PCR NOT DETECTED; CORONAVIRUS HKU1-RESP PCR NOT DETECTED; CORONAVIRUS NL63-RESP PCR NOT DETECTED; CORONAVIRUS OC43-RESP PCR NOT DETECTED; HUMAN METAPNEUMOVIRUS NOT DETECTED; INFLUENZA A- RESP PCR PANEL NOT DETECTED; INFLUENZA B - RESP PCR PANEL NOT DETECTED; M. PNEUMONIAE- RESP PCR PANEL NOT DETECTED; PARAINFLUENZA VIRUS 1 NOT DETECTED; PARAINFLUENZA VIRUS 2 NOT DETECTED; PARAINFLUENZA VIRUS 3 NOT DETECTED; PARAINFLUENZA VIRUS 4 NOT DETECTED; RHINOVIRUS/ENTEROVIRUS NOT DETECTED; RSV- RESP PCR PANEL NOT DETECTED; SARS-CoV-2 -RESP PCR PANEL NOT DETECTED
[2021-06-02] MEDS ORDERED: SUGAMMADEX 200 MG/2 ML VIAL IVP ONE (15:00)
[2021-06-02] MEDS ORDERED: BUPIVACAINE 0.5% PF 10 ML VIAL IM ONE (15:06)
[2021-06-02] MEDS ORDERED: LIDOCAINE 2%-EPI 1:100000 20 ML MDV SUBQ ONE (15:07)
[2021-06-02] MEDS ORDERED: ACETAMINOPHEN 325 MG TABLET PO PRN (15:15)
[2021-06-02] MEDS ORDERED: ONDANSETRON 4 MG/2 ML VIAL IVP PRN ×2 (15:15→15:37)
[2021-06-02] MEDS ORDERED: oxyCODONE 5 MG TABLET PO PRN (15:15)
[2021-06-02] MEDS ORDERED: IBUPROFEN 600 MG TABLET PO PRN (15:15)
--- NOTE | 2021-06-02 15:15 | OPERATIVE REPORT ---
Operative Report - General Procedure Date: 06/02/21 Planned Procedure: Laparoscopic appendectomy Pre-Op Diagnosis: Acute appendicitis Procedure Performed: Laparoscopic appendectomy Post Op Diagnosis: Acute nonperforated appendicitis - Procedure Note Primary Surgeon: Merissa Anesthesia Provider: FIDE Peña Anesthesia Technique: General ET tube Pathology: Appendix to pathology in formalin Estimated Blood Loss (mL): 5 Indications: Acute appendicitis demonstrated on CT Findings: Acute nonperforated appendicitis Complications: None apparent - Other Other Information/Narrative: After obtaining informed consent, the patient is brought to the operating room and placed in the supine position on the operating table. Following successful induction of general endotracheal anesthesia, appropriate padding of all bony prominences, and placement of appropriate monitors, the abdomen was prepped and draped in the standard surgical fashion. A timeout was held per scope protocol. All elements of the surgical safety checklist were followed before, during, and after the procedure. Following infiltration with local anesthetic to create a field block, an incis ion was created superior to the umbilicus and carried down through the skin and subcutaneous tissue to reveal the fascia below. 2-0 Vicryl retention sutures were placed on either side of the midline and the abdomen was entered under direct vision using a 15 blade scalpel. A 10 mm blunt Stevens balloon trocar was placed in the abdominal cavity and it was insufflated to 15 mmHg pressure. The patient was placed in Trendelenburg position with the left side rotated toward the floor. The camera was placed in the abdominal cavity and we immediately visualized the cecum in the right lower quadrant. It was rotated medially to reveal a somewhat dilated and turgid appendix. The appendix was grasped and elevated revealing its attachment to the cecum. A window was created in the mesoappendix at this location. A laparoscopic stapling device was used to ligate the appendix and liberated from its attachment to the cecum. An additional load of the device were used to divide its mesentery.The appendix was placed in an Endo Catch bag and removed via the umbilical port with a camera in the epigastric position. The camera was replaced in the operative site examined. It was irrigated with warm saline solution and aspirated free of all fluid and particulate matter. The table was flattened and the abdomen evaluated once again. The trochars were removed under direct vision and abdomen was d esufflated. The umbilical incision was closed with interrupted Vicryl suture and Monocryl stitches were placed in the skin. All sponge, needles, and instrument counts were correct at the conclusion of the case. The patient was allowed to wake from anesthesia without difficulty and taken to the postanesthesia care unit in good condition.
[2021-06-02] MEDS ORDERED: LACTATED RINGERS 400 ML IV ONE (15:28)
[2021-06-02] MEDS ORDERED: fentaNYL 100 MCG/2 ML VIAL IVP PRN (15:37)
[2021-06-02] MEDS ORDERED: ePHEDrine 50 MG/ML VIAL IVP PRN (15:37)
[2021-06-02] MEDS ORDERED: NALOXONE 0.4 MG/ML VIAL IVP PRN (15:37)
[2021-06-02] MEDS ORDERED: ATROPINE ABBOJECT 1 MG/10 ML SYRINGE IVP PRN (15:37)
[2021-06-02] MEDS ORDERED: METOCLOPRAMIDE 10 MG/2 ML VIAL IVP PRN (15:37)
[2021-06-02] MEDS ORDERED: MORPHINE 2 MG/ML CARPUJECT IVP PRN (15:37)
[2021-06-02] MEDS ORDERED: HYDROmorphone 0.5 MG/0.5 ML SYRINGE IVP PRN (15:37)
[2021-06-02] MEDS ORDERED: LACTATED RINGERS 1,000 ML IV SCH (16:00)
--- NOTE | 2021-06-02 16:45 | ANESTHESIA POST OP EVALUATION ---
Anesthesia Post Eval - Post Anesthesia Eval Vitals: Last Vital Signs Temp 36.5 C 06/02/21 16:36 Pulse 67 06/02/21 16:36 Resp 19 06/02/21 16:36 BP 150/70 H 06/02/21 16:36 Pulse Ox 96 06/02/21 16:36 CV Function Including HR & BP: Stable Pain Control: Satisfactory Nausea & Vomiting: Negative Mental Status: Baseline Respiratory Status: Airway Patent Hydration Status: Satisfactory Anesthesia Complications: None
[2021-06-02 17:28] VITALS: BP 132/66
== END 2021-06-02 17:47 | disposition home or self-care (01) ==
LOC: ED 08:52 → SDS 13:07 → MS2 15:57 → SDS 17:47
PROVIDERS: ATTEND Surgery
PROC: 0DTJ4ZZ Resection of Appendix, Percutaneous Endoscopic Approach (ICD-10-PCS; principal; 2021-06-02 13:30)
DX: K35.80 Unspecified acute appendicitis (principal); Z20.822 Contact with and (suspected) exposure to COVID-19; D12.1 Benign neoplasm of appendix; I48.0 Paroxysmal atrial fibrillation; I10 Essential (primary) hypertension; E66.9 Obesity, unspecified; Z68.31 Body mass index [BMI] 31.0-31.9, adult
CPT/HCPCS: 36415; 44970; 74177; 80053; 81003; 83690; 85025; 87631; 99283; 99285; A9270; J7120; Q9967; 0202U; 81001; 87086

== ENCOUNTER 2021-06-09 08:00 | Outpatient (CLI) | payer MEDICARE, OTHER ==
[2021-06-09 20:10] LABS: BILIRUBIN,URINE NEGATIVE (NEGATIVE); GLUCOSE, URINE (UA) NEGATIVE (NEGATIVE); KETONES,URINE (UA) NEGATIVE (NEGATIVE); LEUKOCYTE ESTERASE, URINE NEGATIVE (NEGATIVE); NITRITE,URINE NEGATIVE (NEGATIVE); OCCULT BLOOD,URINE TRACE-INTA (NEGATIVE); PH,URINE 5.5 PH (5.0-7.5); PROTEIN,URINE TRACE mg/dL (NEGATIVE); UROBILINOGEN,URINE 1 (NORMAL) E.U./dL (NORMAL)
[2021-06-09 20:17] LABS: CLARITY,URINE CLEAR (CLEAR)
[2021-06-09 20:24] LABS: BACTERIA,URINE None Seen /HPF (None Seen); RBC,URINE 0-5 /HPF (0-5); SQUAMOUS EPITHELIAL CELL,UR NONE SEEN (<= Few); WBC,URINE 0-3 /HPF (0-3)
== END 2021-06-09 23:59 ==
LOC: LAB.S 08:00
PROVIDERS: ATTEND Physician Assistant
DX: R31.9 Hematuria, unspecified (principal)
CPT/HCPCS: 81001; 87086

== ENCOUNTER 2021-06-09 15:06 | Emergency (ER) | payer MEDICARE, OTHER ==
--- NOTE | 2021-06-09 15:23 | ED Physician Documentation ---
PD HPI ABD PAIN - Stated complaint Stated Complaint: BLOOD IN URINE - Chief complaint Chief Complaint: Abd Pain - History obtained from History obtained from: Patient - History of Present Illness Timing - onset: How many days ago (The patient is s/p laparoscopic appendectomy done here by Dr. Fields. He is noticed ongoing pain in the right lower quadrant and periumbilical area. Also noticing dark brown urine intermittently over the last 3 days.) Timing - duration: Days (has had right abd pain since surgery, which he expected, but thought it would be improving now 6 days later. Has had blood in urine intermittently for 3 days.) Timing - details: Waxing and waning Quality: Cramping, Aching, Pain Location: RLQ, Suprapubic Radiation: No: Chest, Lower back, Right flank Improved by: Laying still. No: Eating Worsened by: Moving, Palpation. No: Eating Associated symptoms: Nausea, Hematuria, Loss of appetite. No: Fever, Vomiting, Diarrhea, Constipation, Dysuria Similar symptoms before: Has not had sx before Recently seen: Emergency Dept, Surgery (appendicitis 7 days ago and had surgery here.) Review of Systems Constitutional: denies: Fever, Chills Nose: denies: Rhinorrhea / runny nose, Congestion Throat: denies: Sore throat Cardiac: denies: Chest pain / pressure Respiratory: denies: Dyspnea, Cough GI: reports: Abdominal Pain, Nausea, Constipation. denies: Abdominal Swelling, Vomiting, Diarrhea : reports: Hematuria. denies: Dysuria, Frequency, Discharge Skin: reports: Other (purple bruising has developed around umbilical surgical incision site, but the other 2 appear good without redness/drainage.). 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 - Past Surgical History Past Surgical History: Yes Ortho: Knee replacement Cardiovascular: Other - Present Medications Home Medications: Ambulatory Orders Medication Instructions Recorded Confirmed Gabapentin [Neurontin] 300 mg PO HS 06/02/21 06/02/21 Lisinopril [Zestril] 20 mg PO DAILY 06/02/21 06/02/21 Ondansetron Odt [Zofran Odt] 4 mg TL Q6H PRN #10 tablet 06/02/21 Ondansetron Odt [Zofran Odt] 4 mg TL Q6H PRN #10 tablet 06/02/21 Pramipexole [Mirapex] 0.5 mg PO DAILY 06/02/21 06/02/21 Rivaroxaban [Xarelto] 20 mg PO DAILY 06/02/21 06/02/21 oxyCODONE [Roxicodone] 5 mg PO Q4-6H PRN #14 tablet 06/02/21 cephALEXin [Keflex] 500 mg PO TID #20 cap 06/09/21 - Allergies Allergies/Adverse Reactions: Allergies Allergy/AdvReac Type Severity Reaction Status Date / Time No Known Drug Allergies Allergy Verified 06/09/21 15:15 - Social History Does the pt smoke?: No Smoking Status: Never smoker Does the pt drink ETOH?: Yes Does the pt have substance abuse?: No - Immunizations Immunizations are current?: No - POLST Patient has POLST: No PD ED PE NORMAL - Vitals Vital signs reviewed: Yes - General General: Alert and oriented X 3, No acute distress, Well developed/nourished - HEENT HEENT: Pharynx benign - Neck Neck: Supple, no meningeal sign, No adenopathy - Cardiac Cardiac: RRR, No murmur - Respiratory Respiratory: No respiratory distress, Clear bilaterally - Abdomen Abdomen: Soft, Other (mild distended abd. There is 5-6 cm diameter area of purple bruising around infraumbilical scope incision. Small rounded area subcut that is mild tender, consider hematoma. The other 2 scope incision sites without bruising. No redness/drainage at any site. Tender RLQ mild guarding. no percussion.). No: Normal bowel sounds (increased) - Male Male : Deferred - Rectal Rectal: Deferred - Back Back: Other (mild rigth CVA area tender. ) - Derm Derm: Normal color, Warm and dry - Extremities Extremities: Normal ROM s pain, No edema, No calf tenderness / cord - Neuro Neuro: Alert and oriented X 3, No motor deficit, No sensory deficit, Normal speech Results - Vitals Vitals: Vital Signs - 24 hr 06/09/21 06/09/21 06/09/21 15:10 18:32 18:34 Temperature 36.0 C L Heart Rate 84 78 78 Respiratory 16 16 16 Rate Blood Pressure 167/83 H 143/66 H 143/66 H O2 Saturation 97 96 96 Oxygen O2 Source Room air - Labs Labs: Laboratory Tests 06/09/21 06/09/21 06/09/21 15:14 15:59 15:59 WBC 11.4 H RBC 3.75 L Hgb 12.1 L Hct 36.1 L MCV 96.3 H MCH 32.3 H MCHC 33.5 RDW 13.4 Plt Count 315 MPV 9.8 Neut # (Auto) 8.4 H Lymph # (Auto) 1.5 [place] # (Auto) 1.2 H Eos # (Auto) 0.2 Baso # (Auto) 0.1 Absolute Nucleated RBC 0.00 Nucleated RBC % 0.0 Sodium 132 L Potassium 4.3 Chloride 100 L Carbon Dioxide 23 Anion Gap 9.0 BUN 31 H Creatinine 1.2 Estimated GFR (MDRD) 60 L Glucose 95 Calcium 8.7 Total Bilirubin 1.4 H AST 25 ALT 21 Alkaline Phosphatase 38 L Total Protein 7.0 Albumin 3.8 Globulin 3.2 Albumin/Globulin Ratio 1.2 Lipase 25 Urine Color DARK YELLOW Urine Clarity HAZY Urine pH 5.5 Ur Specific [place] 1.025 Urine Protein 30 H Urine Glucose (UA) NEGATIVE Urine Ketones NEGATIVE Urine Occult Blood SMALL H Urine Nitrite NEGATIVE Urine Bilirubin NEGATIVE Urine Urobilinogen 1 (NORMAL) Ur Leukocyte Esterase NEGATIVE Urine RBC 0-5 Urine WBC 0-3 Ur Squamous Epith Cells RARE Squamous Urine Bacteria Rare Urine Mucus Few Strands Ur Microscopic Review INDICATED Urine Culture Comments NOT INDICATED - Rads (name of study) abd/Pelvic CT Radiology: Prelim report reviewed (no hydroureter. Mild fluid in pelvis and around spleen. COnsider post op fluid, hemorrhage, or purulence. ), EMP read contemporaneously (I see same calcification at right UVJ as on prior CT, that was read as ureteral stone. ), See rad report PD MEDICAL DECISION MAKING - ED course Complexity details: reviewed old records (CT abd 06/02/21 showing appendicitis but also with reading of 3 mm stone at right UVJ. no hydronephrosis. ), reviewed results (CT today showing stone at UVJ unchanged. No hydro noted. s/p appy and with some moderate density fluid in pelvis and around spleen. Post op fluid versus blood vs infection. blood count showed drop from 17 to 12 Hgb from to now. Dr. Bond says he will recheck it on f/u, unlikely ongoing bleed.), d/w patient, d/w hr shared services consultant (talked with Dr. Bond, who will see patient in office this week for follow up and recheck labs. ) ED course: hemmaturia most likely due to ureteral stone at UVJ still there. He has intrabd free fluid, presume post op fluid but could also be some bleeding. Non per itoneal abd exam, so does not seem as likely abscess/peritonitis. Abd wall bruising with signs of wound infection. Dr. Bond asks to Rx antibiotic PO, so I did. Departure - Departure Disposition: Home, Self Care Clinical Impression: Status post appendectomy, Hematuria, Ureterolithiasis, Anticoagulant long-term use, Hematoma Condition: Stable Record reviewed to determine appropriate education?: Yes Instructions: ED Stone Renal W Colic Follow-Up: Tito Bond MD [Provider Admit Priv/Credential] - Prescriptions: cephALEXin [Keflex] 500 mg PO TID #20 cap Comments: Your CT scan a week ago and again today show a 3 mm stone at the junction of the ureter with the bladder. It does not change location. I presume this is the cause of your blood in the urine. There is no signs of bladder infection. On your CT scan there is postoperative fluid in the abdomen and pelvis of a small amount which is fairly common. It is hard to tell whether that may be some blood collected in there and would therefore be more irritating than just the normal operative fluid and account for some worse pain then typical. At this point I would suggest some Tylenol 500 mg 4 times daily regularly for pain and then add the pain medicines prescribed as needed. I talked with Dr. Bond who is on-call for Dr. Craven for the surgery office. He would like to see you in the office in the next 2 to 3 days for a recheck on the symptoms and to recheck your blood count. Call the office tomorrow and let them know you are seen here and Dr. Bond did want to see you. This would be in addition to the plan to follow-up appointment with Dr. Fields on the . Contact your urologist regarding the kidney stone if he wants to do anything else for that in the meantime. Return to the ER if increasing pain, high fevers, significant blood in the urine or other concerns. Dr. Bond did suggest cephalexin antibiotic for the next several days to week for concern of early infection. I sent the prescription for this to [facility] [place] in [place]. Discharge Date/Time: 06/09/21 18:32
[2021-06-09 15:28] LABS: BILIRUBIN,URINE NEGATIVE (NEGATIVE); GLUCOSE, URINE (UA) NEGATIVE (NEGATIVE); KETONES,URINE (UA) NEGATIVE (NEGATIVE); LEUKOCYTE ESTERASE, URINE NEGATIVE (NEGATIVE); NITRITE,URINE NEGATIVE (NEGATIVE); OCCULT BLOOD,URINE SMALL (NEGATIVE); PH,URINE 5.5 PH (5.0-7.5); PROTEIN,URINE 30 mg/dL (NEGATIVE); UROBILINOGEN,URINE 1 (NORMAL) E.U./dL (NORMAL)
[2021-06-09 15:32] LABS: CLARITY,URINE HAZY (CLEAR)
[2021-06-09 15:47] LABS: BACTERIA,URINE Rare /HPF (None Seen); MUCUS,URINE Few Strands; RBC,URINE 0-5 /HPF (0-5); SQUAMOUS EPITHELIAL CELL,UR RARE Squamous (<= Few); WBC,URINE 0-3 /HPF (0-3)
[2021-06-09] MEDS: SODIUM CHLORIDE 0.9% 1,000 ML IV STA (16:05)
[2021-06-09] MEDS ORDERED: IOVERSOL 320 100 ML VIAL IVP ONE (16:06)
[2021-06-09 16:12] LABS: BASOPHILS # (AUTO) 0.1 10^3/uL (0.0-0.1); BASOPHILS % (AUTO) 0.4 %; EOSINOPHILS # (AUTO) 0.2 10^3/uL (0.0-0.7); EOSINOPHILS % (AUTO) 1.5 %; HCT - HEMATOCRIT 36.1 % (42.0-52.0); HGB - HEMOGLOBIN 12.1 g/dL (14.0-18.0); LYMPHOCYTES # (AUTO) 1.5 10^3/uL (1.5-3.5); LYMPHOCYTES % (AUTO) 13.1 %; MEAN CORPUSCULAR HEMOGLOBIN 32.3 pg (27.0-31.0); MEAN CORPUSCULAR HGB CONC 33.5 g/dL (32.0-36.0); MEAN CORPUSCULAR VOLUME 96.3 fL (80.0-94.0); MEAN PLATELET VOLUME 9.8 fL (7.4-11.4); MONOCYTES # (AUTO) 1.2 10^3/uL (0.0-1.0); MONOCYTES % (AUTO) 10.6 %; NEUTROPHILS # (AUTO) 8.4 10^3/uL (1.5-6.6); NEUTROPHILS % (AUTO) 73.7 %; PLT - PLATELET COUNT 315 10^3/uL (130-450); RED BLOOD COUNT 3.75 10^6/uL (4.70-6.10); RED CELL DISTRIBUTION WIDTH 13.4 % (12.0-15.0); WHITE BLOOD COUNT 11.4 x10^3/uL (4.8-10.8)
[2021-06-09 16:21] LABS: ALBUMIN 3.8 g/dL (3.2-5.5); ALBUMIN/GLOBULIN RATIO 1.2 (1.0-2.2); BILIRUBIN,TOTAL 1.4 mg/dL (0.2-1.0); CALCIUM 8.7 mg/dL (8.5-10.3); CREATININE 1.2 mg/dL (0.6-1.2); POTASSIUM 4.3 mmol/L (3.5-5.0)
[2021-06-09] MEDS: IOVERSOL 320 100 ML VIAL IVP ONE (16:54)
--- NOTE | 2021-06-09 17:05 | CT Report ---
PROCEDURE: Abdomen/Pelvis W INDICATIONS: 6 days post appy; right abd pain/hematuria. CONTRAST: IV CONTRAST: Optiray 320 ml: 100 PO CONTRAST: *NO PO CONTRAST TECHNIQUE: After the administration of IV contrast, 5 mm thick sections acquired from the diaphragms to the symp hysis. 5 mm thick coronal and sagittal reformats were acquired. For radiation dose reduction, the f ollowing was used: automated exposure control, adjustment of mA and/or kV according to patient size. COMPARISON: None. FINDINGS: Image quality: Excellent. ABDOMEN: Lung bases: Lung bases are clear. Heart size is normal. Solid organs: Liver and spleen are normal in size and enhancement. Gallbladder is within normal dickson its Biliary system is non dilated. Pancreas enhances normally. No adrenal nodules. Kidneys demons trate normal size and enhancement, without hydronephrosis. Peritoneum and bowel: Bowel loops demonstrate normal wall thickness and caliber. No pneumoperitoneu m. There is a small amount of fluid versus unopacified bowel loop within the right lower quadrant malina suring roughly 43 mm. Fat stranding within the right lower quadrant is present. Small amount of inter mediate density perisplenic fluid is present. Small amount of intermediate density free fluid within the pelvis. Nodes and vessels: No retroperitoneal or mesenteric adenopathy by size criteria. Aorta and inferior vena cava are normal in size. Miscellaneous: No ventral hernias. PELVIS: Genitourinary: Bladder wall thickness is normal. Miscellaneous: No inguinal hernias or adenopathy. Small amount of fluid within the right inguinal c anal. Bones: No suspicious bony lesions. No vertebral body compression fractures. IMPRESSION: 1. Postsurgical sequelae. 2. Small amount of fluid within the right lower quadrant which may indicate nonopacified bowel loop v ersus early abscess. Oral contrast-enhanced CT examination may be helpful for further assessment. 3. Small amount of intermediate density fluid within the pelvis and perisplenic location, which could indicate a small amount of postsurgical fluid, hemorrhage, or purulent material. Reviewed by: Negro Scruggs MD on 06/09/2021 5:04 PM PDT Approved by: Negro Scruggs MD on 06/09/2021 5:04 PM PDT Station ID: [id number]
[2021-06-09] MEDS: cephALEXin 250 MG CAPSULE PO STA (18:13)
[2021-06-09 18:34] VITALS: BP 143/66
== END 2021-06-09 18:32 | disposition home or self-care (01) ==
LOC: ED 15:06
DX: N99.841 Postprocedural hematoma of a genitourinary system organ or structure following other procedure (principal); G89.18 Other acute postprocedural pain; N20.1 Calculus of ureter; I10 Essential (primary) hypertension; I48.91 Unspecified atrial fibrillation; Z79.01 Long term (current) use of anticoagulants; R31.9 Hematuria, unspecified
CPT/HCPCS: 36415; 74177; 80053; 81001; 83690; 85025; 99284; A9270; Q9967; 81003; 87086

== ENCOUNTER 2021-06-17 08:06 | Inpatient (IN) | payer MEDICARE, OTHER ==
[2021-06-17 08:40] LABS: BILIRUBIN,URINE NEGATIVE (NEGATIVE); GLUCOSE, URINE (UA) NEGATIVE (NEGATIVE); KETONES,URINE (UA) NEGATIVE (NEGATIVE); LEUKOCYTE ESTERASE, URINE NEGATIVE (NEGATIVE); NITRITE,URINE NEGATIVE (NEGATIVE); OCCULT BLOOD,URINE NEGATIVE (NEGATIVE); PROTEIN,URINE NEGATIVE (NEGATIVE); UROBILINOGEN,URINE 0.2 (NORMAL) E.U./dL (NORMAL)
[2021-06-17 08:41] LABS: CLARITY,URINE CLEAR (CLEAR)
[2021-06-17 08:42] LABS: BASOPHILS # (AUTO) 0.1 10^3/uL (0.0-0.1); BASOPHILS % (AUTO) 0.5 %; EOSINOPHILS # (AUTO) 0.1 10^3/uL (0.0-0.7); HCT - HEMATOCRIT 38.8 % (42.0-52.0); HGB - HEMOGLOBIN 12.7 g/dL (14.0-18.0); LYMPHOCYTES # (AUTO) 1.2 10^3/uL (1.5-3.5); LYMPHOCYTES % (AUTO) 11.1 %; MEAN CORPUSCULAR HEMOGLOBIN 31.4 pg (27.0-31.0); MEAN CORPUSCULAR HGB CONC 32.7 g/dL (32.0-36.0); MEAN PLATELET VOLUME 9.1 fL (7.4-11.4); MONOCYTES # (AUTO) 1.2 10^3/uL (0.0-1.0); MONOCYTES % (AUTO) 10.5 %; NEUTROPHILS # (AUTO) 8.4 10^3/uL (1.5-6.6); NEUTROPHILS % (AUTO) 76.4 %; PLT - PLATELET COUNT 409 10^3/uL (130-450); RED BLOOD COUNT 4.04 10^6/uL (4.70-6.10); RED CELL DISTRIBUTION WIDTH 13.4 % (12.0-15.0)
[2021-06-17 08:48] LABS: ALBUMIN 3.5 g/dL (3.2-5.5); ALBUMIN/GLOBULIN RATIO 0.9 (1.0-2.2); BILIRUBIN,TOTAL 1.2 mg/dL (0.2-1.0); CALCIUM 8.8 mg/dL (8.5-10.3); CREATININE 1.3 mg/dL (0.6-1.2); POTASSIUM 4.1 mmol/L (3.5-5.0); TOTAL PROTEIN 7.3 g/dL (6.7-8.2)
--- NOTE | 2021-06-17 09:44 | ED Physician Documentation ---
History of Present Illness - Stated complaint Stated Complaint: ABD PX - Chief complaint Chief Complaint: Abd Pain - History obtained from History obtained from: Patient - Additonal information Additional information: The patient comes to the emergency department chief complaint of right pelvic pain, worsening again after being on antibiotics. The patient is 2 weeks status post laparoscopic appendectomy and several days after surgery, began to develop increasing right pelvic pain. CT was done about 8 days ago and showed small amount of fluid in the right pelvis versus early abscess. The patient was placed on antibiotics from the emergency department. He states that initially, the symptoms began to improve, But he felt as though he was having side effects from the antibiotics, so he stopped the Wednesday of the 1 week course. The patient states that a day or two later, he began to notice that his pain was starting to recur. He denies any fevers or chills. He got back on the antibiotics, but was told by the surgery office to come into the emergency department for evaluation for possible abscess with CT. He states the pain is located in his right suprapubic area, but seems to radiate inferiorly. He is not sure if he has any scrotal pain or not but does not think so. No dysuria or other symptoms. No history of hernia. No other complaints at this time. Review of Systems Ten Systems: 10 systems reviewed and negative Constitutional: reports: Reviewed and negative Eyes: reports: Reviewed and negative Ears: reports: Reviewed and negative Nose: reports: Reviewed and negative Throat: reports: Reviewed and negative Cardiac: reports: Reviewed and negative Respiratory: reports: Reviewed and negative GI: reports: Abdominal Pain : reports: Reviewed and negative Skin: reports: Reviewed and negative Musculoskeletal: reports: Reviewed and negative Neurologic: reports: Reviewed and negative Psychiatric: reports: Reviewed and negative Endocrine: reports: Reviewed and negative Immunocompromised: reports: Reviewed and negative PD PAST MEDICAL HISTORY - Past Medical History Past Medical History: Yes Cardiovascular: Hypertension, Atrial fibrillation Respiratory: None Neuro: Peripheral neuropathy Endocrine/Autoimmune: None GI: GERD : Benign prostate hypertrophy HEENT: None Psych: None Musculoskeletal: None Derm: None - Past Surgical History Past Surgical History: Yes General: Appendectomy Ortho: Knee replacement Cardiovascular: Other - Present Medications Home Medications: Ambulatory Orders Medication Instructions Recorded Confirmed Gabapentin [Neurontin] 300 mg PO HS 06/02/21 06/17/21 Lisinopril [Zestril] 20 mg PO DAILY 06/02/21 06/17/21 Pramipexole [Mirapex] 0.5 mg PO DAILY PM 06/02/21 06/17/21 Rivaroxaban [Xarelto] 20 mg PO DAILY 06/02/21 06/17/21 oxyCODONE [Roxicodone] 5 mg PO Q4-6H PRN #14 tablet 06/02/21 06/17/21 cephALEXin [Keflex] 500 mg PO TID #20 cap 06/09/21 06/17/21 - Allergies Allergies/Adverse Reactions: Allergies Allergy/AdvReac Type Severity Reaction Status Date / Time No Known Drug Allergies Allergy Verified 06/17/21 08:09 - Social History Does the pt smoke?: No Smoking Status: Former smoker Does the pt drink ETOH?: Yes Does the pt have substance abuse?: No - Immunizations Immunizations are current?: No - POLST Patient has POLST: No PD ED PE NORMAL - Vitals Vital signs reviewed: Yes - General General: Alert and oriented X 3, No acute distress, Well developed/nourished - HEENT HEENT: Atraumatic, PERRL, EOMI, Moist mucous membranes - Neck Neck: Supple, no meningeal sign - Cardiac Cardiac: RRR, No murmur, Strong equal pulses - Respiratory Respiratory: No respiratory distress, Clear bilaterally - Abdomen Abdomen: Soft, Non distended, Other (Tenderness with approximately 4 cm diameter soft tissue mass in the right mons pubis area. No scrotal tenderness or mass. No superficial skin changes. Surgical incision sites appear to be healing well. No associated erythema or drainage.) - Derm Derm: Normal color, Warm and dry, No rash - Extremities Extremities: No deformity, No edema - Neuro Neuro: Alert and oriented X 3, complex care nurse practitioner 2-12 intact, Normal speech - Psych Psych: Normal mood, Normal affect Results - Vitals Vitals: Vital Signs - 24 hr 06/17/21 06/17/21 06/17/21 08:09 08:37 10:16 Temperature 37.3 C Heart Rate 92 94 78 Respiratory 18 16 17 Rate Blood Pressure 145/64 H 157/90 H 139/69 H O2 Saturation 98 97 97 06/17/21 06/17/21 12:00 14:01 Temperature Heart Rate 82 84 Respiratory 16 18 Rate Blood Pressure 172/67 H 128/68 O2 Saturation 98 99 Oxygen O2 Source Room air - Labs Labs: Laboratory Tests 06/17/21 06/17/21 06/17/21 08:25 08:28 08:28 WBC 11.0 H RBC 4.04 L Hgb 12.7 L Hct 38.8 L MCV 96.0 H MCH 31.4 H MCHC 32.7 RDW 13.4 Plt Count 409 MPV 9.1 Neut # (Auto) 8.4 H Lymph # (Auto) 1.2 L Glenn # (Auto) 1.2 H Eos # (Auto) 0.1 Baso # (Auto) 0.1 Absolute Nucleated RBC 0.00 Nucleated RBC % 0.0 Sodium 134 L Potassium 4.1 Chloride 97 L Carbon Dioxide 26 Anion Gap 11.0 BUN 26 H Creatinine 1.3 H Estimated GFR (MDRD) 54 L Glucose 116 H Calcium 8.8 Total Bilirubin 1.2 H AST 18 ALT 28 Alkaline Phosphatase 47 Total Protein 7.3 Albumin 3.5 Globulin 3.8 Albumin/Globulin Ratio 0.9 L Lipase 25 Urine Color DARK YELLOW Urine Clarity CLEAR Urine pH 6.0 Ur Specific [place] 1.020 Urine Protein NEGATIVE Urine Glucose (UA) NEGATIVE Urine Ketones NEGATIVE Urine Occult Blood NEGATIVE Urine Nitrite NEGATIVE Urine Bilirubin NEGATIVE Urine Urobilinogen 0.2 (NORMAL) Ur Leukocyte Esterase NEGATIVE Ur Microscopic Review NOT INDICATED Urine Culture Comments NOT INDICATED Nasal Adenovirus (PCR) Nasal B. parapertussis DNA (PCR) Nasal Coronavir 229E PCR Nasal Coronavir HKU1 PCR Nasal Coronavir NL63 PCR Nasal Coronavir OC43 PCR Nasal Enterovir/Rhinovir PCR Nasal Influenza B PCR Nasal Influenza A PCR Nasal Parainfluen 1 PCR Nasal Parainfluen 2 PCR Nasal Parainfluen 3 PCR Nasal Parainfluen 4 PCR Nasal RSV (PCR) Nasal B.pertussis DNA PCR Nasal C.pneumoniae (PCR) [place] Human Metapneumo PCR Nasal M.pneumoniae (PCR) Nasal SARS-CoV-2 (PCR) 06/17/21 13:10 WBC RBC Hgb Hct MCV MCH MCHC RDW Plt Count MPV Neut # (Auto) Lymph # (Auto) Glenn # (Auto) Eos # (Auto) Baso # (Auto) Absolute Nucleated RBC Nucleated RBC % Sodium Potassium Chloride Carbon Dioxide Anion Gap BUN Creatinine Estimated GFR (MDRD) Glucose Calcium Total Bilirubin AST ALT Alkaline Phosphatase Total Protein Albumin Globulin Albumin/Globulin Ratio Lipase Urine Color Urine Clarity Urine pH Ur Specific [place] Urine Protein Urine Glucose (UA) Urine Ketones Urine Occult Blood Urine Nitrite Urine Bilirubin Urine Urobilinogen Ur Leukocyte Esterase Ur Microscopic Review Urine Culture Comments Nasal Adenovirus (PCR) NOT DETECTED Nasal B. parapertussis DNA (PCR) NOT DETECTED Nasal Coronavir 229E PCR NOT DETECTED Nasal Coronavir HKU1 PCR NOT DETECTED Nasal Coronavir NL63 PCR NOT DETECTED Nasal Coronavir OC43 PCR NOT DETECTED Nasal Enterovir/Rhinovir PCR NOT DETECTED Nasal Influenza B PCR NOT DETECTED Nasal Influenza A PCR NOT DETECTED Nasal Parainfluen 1 PCR NOT DETECTED Nasal Parainfluen 2 PCR NOT DETECTED Nasal Parainfluen 3 PCR NOT DETECTED Nasal Parainfluen 4 PCR NOT DETECTED Nasal RSV (PCR) NOT DETECTED Nasal B.pertussis DNA PCR NOT DETECTED Nasal C.pneumoniae (PCR) NOT DETECTED Tristin Human Metapneumo PCR NOT DETECTED Nasal M.pneumoniae (PCR) NOT DETECTED Nasal SARS-CoV-2 (PCR) NOT DETECTED - Rads (name of study) CT abdomen and pelvis Radiology: Final report received, EMP read indepedently (Multiple loculated peripherally enhancing fluid collections in right lower quadrant consistent with abscess collections; small right inguinal hernia.) PD MEDICAL DECISION MAKING - ED course Complexity details: reviewed old records, reviewed results, re-evaluated patient, considered differential, d/w patient ED course: Patient declined IV analgesia in the emergency department. Laboratory studies were obtained after which patient was sent to CT scan and found to have a postoperative abscess, as well as a small right inguinal hernia. Dr. Craven, the patient surgeon, was in the emergency department and went to see the patient. She stated she would admit him to the hospital. The patient this time is awaiting transfer to surgical service, which is dependent upon when a bed becom es available. He has been in stable condition here. Departure - Departure Disposition: [address] [facility] DC/Xfer Clinical Impression: Postoperative abscess Postoperative hematoma Qualifiers: Surgical complication system/body Area: digestive system Procedure type: digestive system Qualified Code(s): K91.870 - Postprocedural hematoma of a digestive system organ or structure following a digestive system procedure Condition: Serious
[2021-06-17] MEDS ORDERED: IOVERSOL 320 100 ML VIAL IVP ONE ×2 (10:34→12:06)
--- NOTE | 2021-06-17 11:24 | CT Report ---
PROCEDURE: Abdomen/Pelvis W INDICATIONS: post-op R pelvic pain, worsening, pelvic mass CONTRAST: IV CONTRAST: Optiray 320 ml: 100 PO CONTRAST: *NO PO CONTRAST TECHNIQUE: After the administration of intravenous contrast, 5 mm thick sections acquired from the diaphragms to the symphysis. 5 mm thick coronal and sagittal reformats were acquired. For radiation dose reducti on, the following was used: automated exposure control, adjustment of mA and/or kV according to [place] ent size. COMPARISON: CT abdomen pelvis 06/09/2021, 06/02/2021. FINDINGS: Image quality: Excellent. ABDOMEN: Lung bases: There is mild dependent atelectasis bilaterally. Heart size is normal. There is a small h iatal hernia. Solid organs: Evaluation of the liver demonstrates no focal hepatic lesions. Gallbladder appears wit hin normal limits without calcified gallstones. Biliary system is non dilated. The spleen is normal in size. Pancreas enhances normally without peripancreatic fat stranding or fluid collections. No ad renal nodules. Kidneys demonstrate no hydronephrosis. Peritoneum and bowel: Bowel loops demonstrate normal caliber. There are postsurgical changes in the right lower quadrant along the cecum consistent with recent appendectomy. Multiple loculated peripher ally enhancing fluid collections are demonstrated in the right lower quadrant. These include a compon ent within the right paracolic gutter measuring approximately 5.7 x 2.9 x 2.8 cm, a small component p osterior inferior to the cecum measuring 3.8 x 2.2 x 3.4 cm, and a component more inferiorly in the r ight lower quadrant extending to the inguinal fossa measuring approximately 7.0 x 5.7 x 7.2 cm. The f indings are consistent with abscess collections. There is associated fat stranding in the right lower quadrant. A small amount of dependent intraperitoneal free fluid is also demonstrated in the pelvis as well as a small amount and upper quadrant adjacent to the spleen. The fluid demonstrates attenuati on values higher than expected for simple fluid. This appears slightly decreased compared to the prio r study. No intraperitoneal free air. Nodes and vessels: No retroperitoneal or mesenteric adenopathy by size criteria. Aorta and inferior vena cava are normal in size. Miscellaneous: No ventral hernias. PELVIS: Genitourinary: Bladder wall thickness is normal. Miscellaneous: There is a small fat-containing right inguinal hernia also containing a small amount of loculated free fluid. No inguinal adenopathy. Bones: No suspicious bony lesions. No vertebral body compression fractures. IMPRESSION: 1. Multiple loculated peripherally enhancing fluid collections in the right lower quadrant consistent with abscess collections. 2. Small amount of intraperitoneal free fluid appears slightly decreased compared to the prior study. This again demonstrates density higher than expected for simple fluid suggestive of residual blood p roduct from prior surgery. 3. Small amount of loculated fluid redemonstrated in a small right inguinal hernia. No evidence of abdirizak wel herniation. Reviewed by: Vijay Feng MD on 06/17/2021 11:22 AM PDT Approved by: Vijay Feng MD on 06/17/2021 11:22 AM PDT Station ID: [id number]
[2021-06-17] MEDS ORDERED: ONDANSETRON 4 MG/2 ML VIAL IVP PRN (12:26)
[2021-06-17] MEDS ORDERED: oxyCODONE 5 MG TABLET PO PRN (12:26)
[2021-06-17] MEDS ORDERED: PIPERACILLIN/TAZOBACTAM 3.375 GM in SODIUM CHLORIDE 0.9% MINIBAG 100 ML IV ONE (14:00)
[2021-06-17] MEDS ORDERED: PIPERACILLIN/TAZOBACTAM 3.375 GM in SODIUM CHLORIDE 0.9% MINIBAG 100 ML IV SCH (14:00)
[2021-06-17 14:13] LABS: CORONAVIRUS 229E-RESP PCR NOT DETECTED; CORONAVIRUS HKU1-RESP PCR NOT DETECTED; CORONAVIRUS NL63-RESP PCR NOT DETECTED; CORONAVIRUS OC43-RESP PCR NOT DETECTED
[2021-06-17 14:14] LABS: B. PARAPERTUSSIS- RESP PCR PAN NOT DETECTED; B. PERTUSSIS- RESP PCR PANEL NOT DETECTED; C. PNEUMONIAE- RESP PCR PANEL NOT DETECTED; HUMAN METAPNEUMOVIRUS NOT DETECTED; INFLUENZA A- RESP PCR PANEL NOT DETECTED; INFLUENZA B - RESP PCR PANEL NOT DETECTED; M. PNEUMONIAE- RESP PCR PANEL NOT DETECTED; PARAINFLUENZA VIRUS 1 NOT DETECTED; PARAINFLUENZA VIRUS 2 NOT DETECTED; PARAINFLUENZA VIRUS 3 NOT DETECTED; PARAINFLUENZA VIRUS 4 NOT DETECTED; RHINOVIRUS/ENTEROVIRUS NOT DETECTED; RSV- RESP PCR PANEL NOT DETECTED; SARS-CoV-2 -RESP PCR PANEL NOT DETECTED
--- NOTE | 2021-06-17 16:26 | PHARMACY PROGRESS NOTE ---
- Best Possible Medication History Admit Date and Time: 06/17/21 1226 Processed by: Nursing Medication History completed: Yes Secondary Source(s): Insurance records As the person ultimately responsible for medication therapy, providers are able to order a medication from an existing home medication list in [facility] via the "Reconcile Routine" prior to Confirmation of that medication by sales support coordinator. Such practice is discouraged except when the physician, in their clinical judgment, deems that a medical need exists for a medication without regard to previous use.
--- NOTE | 2021-06-17 16:40 | HISTORY & PHYSICAL EXAMINATION ---
Chief Complaint - Chief Complaint Chief Complaint: Abdominal pain Abdominal Pain HPI - Admitted From Admitted from: ED - History Obtained From Records Reviewed: Old records reviewed History obtained from: Patient Exam limitations: No limitations - History of Present Illness Pain/Problem Location Description: Right sided and suprapubic abdominal pain Severity at the worst: Moderate Pain Quality: Aching, Cramping HPI Comment/Other: 71 year old gentleman on Xarelto for chronic atrial fibrillation who underwent a laparoscopic appendectomy on June 02. He initially did well but has developed right sided abdominal pain and cramping over the past 2 weeks. He was seen in Urgent care and diagnosed with hematuria. He was subsequently had a CT scan s howing a RLQ fluid collection consistent with blood. At that time he was noted to be afebrile with a WBC of 11 and was treated with Keflex. He improved in the short term. When the antibiotic course was completed, the symptos returned. He denies any fever at home but report cramping and right lower quadrant pain. He presented to the ED today with the same complaints. He was again found to have a WBC count of 11 and reassuring vital signs. CT scan shows 3 fluid collections in the right lower quadrant consistent with abscess or infected hematoma. He is admitted for further management. PMH/PSH - Past Medical History Cardiovascular: positive: Hypertension, Atrial fibrillation Respiratory: positive: None Neuro: positive: Peripheral neuropathy Endocrine/Autoimmune: positive: None GI: positive: GERD : positive: Benign prostate hypertrophy HEENT: positive: None Psych: positive: None Musculoskeletal: positive: None Derm: positive: None MRSA Hx?: No - Past Surgical History General: positive: Appendectomy Ortho: positive: Knee replacement Cardiovascular: positive: Other Social & Family Hx - Living Situation Living Arrangement: At home Living Situation: With spouse/s.o. - Social History Does the pt smoke?: No Smoking Status: Former smoker Does the pt drink ETOH?: Yes Does the pt have substance abuse?: No - POLST Patient has POLST: No Meds/Allgy - Home Medications Home Medications: Ambulatory Orders Medication Instructions Recorded Confirmed Gabapentin [Neurontin] 300 mg PO HS 06/02/21 06/17/21 Lisinopril [Zestril] 20 mg PO DAILY 06/02/21 06/17/21 Pramipexole [Mirapex] 0.5 mg PO DAILY PM 06/02/21 06/17/21 Rivaroxaban [Xarelto] 20 mg PO DAILY 06/02/21 06/17/21 oxyCODONE [Roxicodone] 5 mg PO Q4-6H PRN #14 tablet 06/02/21 06/17/21 cephALEXin [Keflex] 500 mg PO TID #20 cap 06/09/21 06/17/21 - Allergies Allergies/Adverse Reactions: Allergies Allergy/AdvReac Type Severity Reaction Status Date / Time No Known Drug Allergies Allergy Verified 06/17/21 08:09 Review of Systems - Constitutional Constitutional: reports: Fatigue - Gastrointestinal Gastrointestinal: reports: Abdominal pain - All Other Systems All Other Systems: reports: Reviewed and negative Exam - Vital Signs Reviewed Vital Signs: Yes Vital Signs: Vital Signs x48h Pulse Resp BP Pulse Ox 06/17/21 14:01 84 18 128/68 99 06/17/21 12:00 82 16 172/67 H 98 06/17/21 10:16 78 17 139/69 H 97 - Physical Exam General Appearance: positive: No acute distress, Alert Eyes Bilateral: positive: Normal inspection, PERRL, EOMI ENT: positive: ENT inspection nml, Pharynx nml, No signs of dehydration Neck: positive: Nml inspection Respiratory: positive: Chest non-tender, No respiratory distress, Breath sounds nml Cardiovascular: positive: Regular rate & rhythm Abdomen: positive: Nml bowel sounds, Tenderness, Guarding, Other (Healing incisions). negative: Rebound Extremities: positive: Non-tender Neurologic/Psychiatric: positive: Oriented x3 Results - Lab Results Fish Bones: 06/17/21 08:28 06/17/21 08:28 Other Lab Results: Lab Results x24hrs 06/17/21 06/17/21 06/17/21 Range/Units 13:10 08:28 08:28 WBC 11.0 H (4.8-10.8) x10^3/uL RBC 4.04 L (4.70-6.10) 10^6/uL Hgb 12.7 L (14.0-18.0) g/dL Hct 38.8 L (42.0-52.0) % MCV 96.0 H (80.0-94.0) fL MCH 31.4 H (27.0-31.0) pg MCHC 32.7 (32.0-36.0) g/dL RDW 13.4 (12.0-15.0) % Plt Count 409 (130-450) 10^3/uL MPV 9.1 (7.4-11.4) fL Neut # (Auto) 8.4 H (1.5-6.6) 10^3/uL Lymph # (Auto) 1.2 L (1.5-3.5) 10^3/uL Ware # (Auto) 1.2 H (0.0-1.0) 10^3/uL Eos # (Auto) 0.1 (0.0-0.7) 10^3/uL Baso # (Auto) 0.1 (0.0-0.1) 10^3/uL Absolute Nucleated RBC 0.00 x10^3/uL Nucleated RBC % 0.0 /100WBC Sodium 134 L (135-145) mmol/L Potassium 4.1 (3.5-5.0) mmol/L Chloride 97 L (101-111) mmol/L Carbon Dioxide 26 (21-32) mmol/L Anion Gap 11.0 (6-13) BUN 26 H (6-20) mg/dL Creatinine 1.3 H (0.6-1.2) mg/dL Estimated GFR (MDRD) 54 L (>89) Glucose 116 H (70-100) mg/dL Calcium 8.8 (8.5-10.3) mg/dL Total Bilirubin 1.2 H (0.2-1.0) mg/dL AST 18 (10-42) IU/L ALT 28 (10-60) IU/L Alkaline Phosphatase 47 (42-121) IU/L Total Protein 7.3 (6.7-8.2) g/dL Albumin 3.5 (3.2-5.5) g/dL Globulin 3.8 (2.1-4.2) g/dL Albumin/Globulin Ratio 0.9 L (1.0-2.2) Lipase 25 (22-51) U/L Urine Color Urine Clarity (CLEAR) Urine pH (5.0-7.5) PH Ur Specific [place] (1.002-1.030) Urine Protein (NEGATIVE) mg/dL Urine Glucose (UA) (NEGATIVE) mg/dL Urine Ketones (NEGATIVE) mg/dL Urine Occult Blood (NEGATIVE) Urine Nitrite (NEGATIVE) Urine Bilirubin (NEGATIVE) Urine Urobilinogen (NORMAL) E.U./dL Ur Leukocyte Esterase (NEGATIVE) Ur Microscopic Review Urine Culture Comments Nasal Adenovirus (PCR) NOT DETECTED Nasal B. parapertussis DNA (PCR) NOT DETECTED Nasal Coronavir 229E PCR NOT DETECTED Nasal Coronavir HKU1 PCR NOT DETECTED Nasal Coronavir NL63 PCR NOT DETECTED Nasal Coronavir OC43 PCR NOT DETECTED Nasal Enterovir/Rhinovir PCR NOT DETECTED Nasal Influenza B PCR NOT DETECTED Nasal Influenza A PCR NOT DETECTED Nasal Parainfluen 1 PCR NOT DETECTED Nasal Parainfluen 2 PCR NOT DETECTED Nasal Parainfluen 3 PCR NOT DETECTED Nasal Parainfluen 4 PCR NOT DETECTED Nasal RSV (PCR) NOT DETECTED Nasal B.pertussis DNA PCR NOT DETECTED Nasal C.pneumoniae (PCR) NOT DETECTED Tristin Human Metapneumo PCR NOT DETECTED Nasal M.pneumoniae (PCR) NOT DETECTED Nasal SARS-CoV-2 (PCR) NOT DETECTED 06/17/21 Range/Units 08:25 WBC (4.8-10.8) x10^3/uL RBC (4.70-6.10) 10^6/uL Hgb (14.0-18.0) g/dL Hct (42.0-52.0) % MCV (80.0-94.0) fL MCH (27.0-31.0) pg MCHC (32.0-36.0) g/dL RDW (12.0-15.0) % Plt Count (130-450) 10^3/uL MPV (7.4-11.4) fL Neut # (Auto) (1.5-6.6) 10^3/uL Lymph # (Auto) (1.5-3.5) 10^3/uL Ware # (Auto) (0.0-1.0) 10^3/uL Eos # (Auto) (0.0-0.7) 10^3/uL Baso # (Auto) (0.0-0.1) 10^3/uL Absolute Nucleated RBC x10^3/uL Nucleated RBC % /100WBC Sodium (135-145) mmol/L Potassium (3.5-5.0) mmol/L Chloride (101-111) mmol/L Carbon Dioxide (21-32) mmol/L Anion Gap (6-13) BUN (6-20) mg/dL Creatinine (0.6-1.2) mg/dL Estimated GFR (MDRD) (>89) Glucose (70-100) mg/dL Calcium (8.5-10.3) mg/dL Total Bilirubin (0.2-1.0) mg/dL AST (10-42) IU/L ALT (10-60) IU/L Alkaline Phosphatase (42-121) IU/L Total Protein (6.7-8.2) g/dL Albumin (3.2-5.5) g/dL Globulin (2.1-4.2) g/dL Albumin/Globulin Ratio (1.0-2.2) Lipase (22-51) U/L Urine Color DARK YELLOW Urine Clarity CLEAR (CLEAR) Urine pH 6.0 (5.0-7.5) PH Ur Specific [place] 1.020 (1.002-1.030) Urine Protein NEGATIVE (NEGATIVE) mg/dL Urine Glucose (UA) NEGATIVE (NEGATIVE) mg/dL Urine Ketones NEGATIVE (NEGATIVE) mg/dL Urine Occult Blood NEGATIVE (NEGATIVE) Urine Nitrite NEGATIVE (NEGATIVE) Urine Bilirubin NEGATIVE (NEGATIVE) Urine Urobilinogen 0.2 (NORMAL) (NORMAL) E.U./dL Ur Leukocyte Esterase NEGATIVE (NEGATIVE) Ur Microscopic Review NOT INDICATED Urine Culture Comments NOT INDICATED Nasal Adenovirus (PCR) Nasal B. parapertussis DNA (PCR) Nasal Coronavir 229E PCR Nasal Coronavir HKU1 PCR Nasal Coronavir NL63 PCR Nasal Coronavir OC43 PCR Nasal Enterovir/Rhinovir PCR Nasal Influenza B PCR Nasal Influenza A PCR Nasal Parainfluen 1 PCR Nasal Parainfluen 2 PCR Nasal Parainfluen 3 PCR Nasal Parainfluen 4 PCR Nasal RSV (PCR) Nasal B.pertussis DNA PCR Nasal C.pneumoniae (PCR) Tristin Human Metapneumo PCR Nasal M.pneumoniae (PCR) Nasal SARS-CoV-2 (PCR) - Diagnostic Imaging Results Diagnostic Imaging Results Comments: 3 Right lower quadrant fluid collections slightly less dense than on the prior CT. The largest is anterior and drainage per IR. The two smaller collections are less well organized and to small to drain. Impression/Plan - Problem List Problem List: Pelvic abscess after laparoscopic appendectomy 1. Admit for IV antibiotic and supportive care 2. I spoke with Dr. Ward in Radiology and have requested CT guided drainage. This is scheduled for tomorrow. Patient's last dose of anticoagulant was 06/16 AM
[2021-06-17] MEDS: PRAMIPEXOLE 0.25 MG TABLET PO SCH ×2 (17:39→20:08)
[2021-06-17] MEDS: SODIUM CHLORIDE FLUSH 0.9% 10 ML SYRINGE IVP SCH (17:40)
[2021-06-17] MEDS: PIPERACILLIN/TAZOBACTAM 3.375 GM in SODIUM CHLORIDE 0.9% MINIBAG 100 ML IV SCH (17:40)
[2021-06-17] MEDS ORDERED: CALCIUM CARBONATE CHEW 500 MG TABLET PO PRN (17:54)
[2021-06-17] MEDS: GABAPENTIN 300 MG CAPSULE PO SCH (20:08)
[2021-06-18] MEDS: PIPERACILLIN/TAZOBACTAM 3.375 GM in SODIUM CHLORIDE 0.9% MINIBAG 100 ML IV SCH ×3 (01:20→17:37)
[2021-06-18] MEDS: SODIUM CHLORIDE FLUSH 0.9% 10 ML SYRINGE IVP SCH ×4 (01:22→23:30)
[2021-06-18] MEDS: ACETAMINOPHEN 325 MG TABLET PO PRN ×2 (01:57→16:13)
[2021-06-18 05:10] LABS: BASOPHILS # (AUTO) 0.1 10^3/uL (0.0-0.1); BASOPHILS % (AUTO) 0.6 %; EOSINOPHILS # (AUTO) 0.2 10^3/uL (0.0-0.7); EOSINOPHILS % (AUTO) 2.6 %; HGB - HEMOGLOBIN 10.9 g/dL (14.0-18.0); LYMPHOCYTES % (AUTO) 10.7 %; MEAN CORPUSCULAR HEMOGLOBIN 31.2 pg (27.0-31.0); MEAN CORPUSCULAR VOLUME 94.6 fL (80.0-94.0); MEAN PLATELET VOLUME 9.6 fL (7.4-11.4); MONOCYTES # (AUTO) 1.1 10^3/uL (0.0-1.0); MONOCYTES % (AUTO) 11.9 %; NEUTROPHILS # (AUTO) 6.6 10^3/uL (1.5-6.6); NEUTROPHILS % (AUTO) 73.7 %; PLT - PLATELET COUNT 337 10^3/uL (130-450); RED BLOOD COUNT 3.49 10^6/uL (4.70-6.10); RED CELL DISTRIBUTION WIDTH 13.5 % (12.0-15.0); WHITE BLOOD COUNT 8.9 x10^3/uL (4.8-10.8)
[2021-06-18 05:22] LABS: ALBUMIN 2.9 g/dL (3.2-5.5); ALBUMIN/GLOBULIN RATIO 0.9 (1.0-2.2); BILIRUBIN,TOTAL 1.2 mg/dL (0.2-1.0); CALCIUM 8.2 mg/dL (8.5-10.3); CREATININE 1.2 mg/dL (0.6-1.2); POTASSIUM 3.9 mmol/L (3.5-5.0); TOTAL PROTEIN 6.1 g/dL (6.7-8.2)
[2021-06-18] MEDS: PANTOPRAZOLE 40 MG TABLET PO SCH (06:35)
[2021-06-18 07:42] LABS: INR 1.5 (0.8-1.2); PT - PROTHROMBIN TIME 16.3 secs (9.9-12.6)
[2021-06-18 07:50] LABS: PARTIAL THROMBOPLASTIN TIME 32.3 secs (24.9-33.3)
[2021-06-18] MEDS: lisinopriL 20 MG TABLET PO SCH (08:48)
[2021-06-18] MEDS ORDERED: LIDOCAINE-MPF 1% 10 ML AMP ONE ×2 (08:52→10:20)
[2021-06-18] MEDS ORDERED: ENOXAPARIN 40 MG/0.4 ML SYRINGE SUBQ SCH (09:00)
[2021-06-18] MEDS ORDERED: fentaNYL 100 MCG/2 ML VIAL ONE (09:11)
[2021-06-18] MEDS ORDERED: MIDAZOLAM 2 MG/2 ML VIAL ONE (09:11)
[2021-06-18] MEDS: SODIUM CHLORIDE FLUSH 0.9% 10 ML SYRINGE IVP PRN (11:12)
--- NOTE | 2021-06-18 13:53 | CT Report ---
PROCEDURE: RETROPERITONEAL ABSC DRAIN Sedation analgesia for 30 minutes. Please see nursing record. IV fentanyl and Versed for conscious s edation. INDICATIONS: Pelvic abscess TECHNIQUE: The indications, alternatives, benefits, risks, and possible complications of the procedure were comm unicated to the patient. Informed written consent from the patient was obtained and placed in the art. Continuous EKG and hemodynamic monitoring was started by trained personnel. For radiation dose reduction, the following was used: automated exposure control, adjustment of mA and/or kV according to patient size. The patient was brought to the CT suite and hydroelectric production manager spiral CT imaging was performed with localization g rid. The appropriate site for percutaneous access to the right lateral abdominal fluid collection wa s marked, was prepped and draped sterilely, and was infused with local anaesthesia. An 18-gauge spin al needle was directed into the fluid collection. Through this, no material was able to be aspirated spontaneously. This was irrigated with 10 cc of normal saline into aliquots and old blood was able to be aspirated. This was sent to the lab for culture and Gram stain. The needle was removed and a band age applied. Attention then turned to the right lower quadrant inflammatory fluid collection. This area was preppe d and draped in usual sterile fashion. Skin and subcutis tissues anesthetized thoroughly with 1% lido francis. Under intermittent CT guidance, an 18-gauge Chiba needle was advanced into the fluid collectio n. Initially no fluid was able to be aspirated. This collection was irrigated with sterile saline and subsequently old blood was returned and sent to the lab for culture and Gram stain. A 0.035 guidewir e was placed. Via Seldinger technique, the tract was serially dilated to accommodate an 8 Japanese pigt ail drainage catheter which was placed under intermittent CT guidance. This was placed to gravity tania in. The drain was secured to the skin. A sterile bandage was applied. The patient tolerated the procedure well and there were no immediate complications. He was sent to re covery for postprocedure monitoring. COMPARISON: CT 06/17/2021 IMPRESSION: 1. Successful CT-guided aspiration of right lateral abdominal fluid collection. Cultures are pending. 2. Successful 8 Japanese drain placement in the right lower quadrant fluid collection. Aspirate samples from this fluid collection have been sent to the lab and cultures are pending. 3. Discussed with Dr. Craven following the procedure. Reviewed by: Pura Pizano MD on 06/18/2021 1:52 PM PDT Approved by: Pura Pizano MD on 06/18/2021 1:52 PM PDT Station ID: [id number]
[2021-06-18] MEDS ORDERED: LIDOCAINE-MPF 1% 10 ML AMP SUBQ ONE (14:37)
--- NOTE | 2021-06-18 17:13 | PROVIDER PROGRESS NOTE ---
Subjective - General Admit Date: 06/17/21 Procedure Date: 06/02/21 Post Op Days: 16 Procedure Performed: Lap appy - Review of Systems Wound/Incisions: positive: Healing well General: positive: No symptoms All Other Systems: positive: Reviewed and negative - Other Other Information/Narrative: Mr. Madden reports he generally feels much better today. He has been afebrile and WBCs are down today. Reports he no longer feels "sick". Hungry and tolerating his diet without difficulty. Denies nausea Objective - Patient Data Reviewed Vital Signs: Yes Vital Signs: Vital Signs x48h Temp Pulse Resp BP Pulse Ox 06/18/21 16:16 37 C 75 18 151/66 H 99 06/18/21 11:10 36.8 C 79 19 131/67 H 100 Weight: Weight 06/16/21 06/17/21 06/18/21 23:59 23:59 23:59 Weight (kg) 121.5 kg Intake & Output: Intake and Output Totals x24h 06/16/21 06/17/21 06/18/21 23:59 23:59 23:59 Intake Total 550 740 Balance 550 740 - Lab Results Lab Results: 06/18/21 04:22 06/18/21 04:22 Other Lab Results: Lab Results x24hrs 06/18/21 06/18/21 06/18/21 Range/Units 07:29 04:22 04:22 WBC 8.9 (4.8-10.8) x10^3/uL RBC 3.49 L (4.70-6.10) 10^6/uL Hgb 10.9 L (14.0-18.0) g/dL Hct 33.0 L (42.0-52.0) % MCV 94.6 H (80.0-94.0) fL MCH 31.2 H (27.0-31.0) pg MCHC 33.0 (32.0-36.0) g/dL RDW 13.5 (12.0-15.0) % Plt Count 337 (130-450) 10^3/uL MPV 9.6 (7.4-11.4) fL Neut # (Auto) 6.6 (1.5-6.6) 10^3/uL Lymph # (Auto) 1.0 L (1.5-3.5) 10^3/uL Dupage # (Auto) 1.1 H (0.0-1.0) 10^3/uL Eos # (Auto) 0.2 (0.0-0.7) 10^3/uL Baso # (Auto) 0.1 (0.0-0.1) 10^3/uL Absolute Nucleated RBC 0.00 x10^3/uL Nucleated RBC % 0.0 /100WBC PT 16.3 H (9.9-12.6) secs INR 1.5 H (0.8-1.2) APTT 32.3 (24.9-33.3) secs Sodium 135 (135-145) mmol/L Potassium 3.9 (3.5-5.0) mmol/L Chloride 101 (101-111) mmol/L Carbon Dioxide 25 (21-32) mmol/L Anion Gap 9.0 (6-13) BUN 23 H (6-20) mg/dL Creatinine 1.2 (0.6-1.2) mg/dL Estimated GFR (MDRD) 60 L (>89) Glucose 125 H (70-100) mg/dL Calcium 8.2 L (8.5-10.3) mg/dL Total Bilirubin 1.2 H (0.2-1.0) mg/dL AST 16 (10-42) IU/L ALT 26 (10-60) IU/L Alkaline Phosphatase 40 L (42-121) IU/L Total Protein 6.1 L (6.7-8.2) g/dL Albumin 2.9 L (3.2-5.5) g/dL Globulin 3.2 (2.1-4.2) g/dL Albumin/Globulin Ratio 0.9 L (1.0-2.2) - Current Medications Current Medications: Current Medications Generic Name Dose Route Start Last Admin Trade Name Freq PRN Reason Stop Dose Admin Acetaminophen 650 mg 06/17/21 12:26 06/18/21 16:13 Acetaminophen 325 Mg Tablet PO 650 mg Q4HR PRN Administration PAIN Calcium Carbonate/Glycine 1,000 mg 06/17/21 17:54 06/17/21 20:08 Calcium Carbonate Chew 500 Mg Tablet PO 500 mg Q4H PRN Administration INDIGESTION Gabapentin 300 mg 06/17/21 21:00 06/17/21 20:08 Gabapentin 300 Mg Capsule PO 300 mg HS ROD Administration Piperacillin Sod/Tazobactam 100 mls @ 25 mls/hr 06/17/21 17:30 06/18/21 16:14 Sod 3.375 gm/ Sodium Chloride IV Infused Q8H ROD Infusion Lisinopril 20 mg 06/18/21 09:00 06/18/21 08:48 Lisinopril 20 Mg Tablet PO 20 mg DAILY ROD Administration Pantoprazole Sodium 40 mg 06/18/21 07:00 06/18/21 06:35 Pantoprazole 40 Mg Tablet PO Not Given QDAC ROD Pramipexole Dihydrochloride 0.25 mg 06/17/21 18:00 06/17/21 20:08 Pramipexole 0.25 Mg Tablet PO 0.25 mg 1800,2000 ROD Administration Sodium Chloride 10 ml 06/17/21 17:00 06/18/21 16:13 Sodium Chloride Flush 0.9% 10 Ml Syringe IVP 10 ml 0100,0900,1700 ROD Administration Sodium Chloride 10 ml 06/17/21 12:26 06/18/21 11:12 Sodium Chloride Flush 0.9% 10 Ml Syringe IVP 10 ml PRN PRN Administration NEEDED PER PROVIDER ORDERS - Physical Exam Abdomen: positive: Non-tender, Nml bowel sounds, Other (Drain is primarily serous with no definite foul odor.) Neurologic/Psychiatric: positive: Oriented x3 ABX Reporting Has patient been on IV antibiotics over the past 48 hours?: Yes Impression/Plan - Problem List Problem List: Pelvic hematoma with abscess following lap appy on Xarelto. Drain placed today and culture is pending. Will continue Zosyn as we await culture results.Restart Xarelto in the AM.
[2021-06-18] MEDS: PRAMIPEXOLE 0.25 MG TABLET PO SCH ×2 (17:38→20:18)
[2021-06-18] MEDS: GABAPENTIN 300 MG CAPSULE PO SCH (20:18)
[2021-06-19] MEDS: PIPERACILLIN/TAZOBACTAM 3.375 GM in SODIUM CHLORIDE 0.9% MINIBAG 100 ML IV SCH ×2 (01:06→09:37)
[2021-06-19 05:09] LABS: BASOPHILS # (AUTO) 0.1 10^3/uL (0.0-0.1); BASOPHILS % (AUTO) 0.8 %; EOSINOPHILS # (AUTO) 0.3 10^3/uL (0.0-0.7); EOSINOPHILS % (AUTO) 5.1 %; HCT - HEMATOCRIT 31.6 % (42.0-52.0); HGB - HEMOGLOBIN 10.4 g/dL (14.0-18.0); LYMPHOCYTES # (AUTO) 1.6 10^3/uL (1.5-3.5); MEAN CORPUSCULAR HEMOGLOBIN 31.3 pg (27.0-31.0); MEAN CORPUSCULAR HGB CONC 32.9 g/dL (32.0-36.0); MEAN CORPUSCULAR VOLUME 95.2 fL (80.0-94.0); MEAN PLATELET VOLUME 9.5 fL (7.4-11.4); MONOCYTES # (AUTO) 0.8 10^3/uL (0.0-1.0); MONOCYTES % (AUTO) 12.9 %; NEUTROPHILS # (AUTO) 3.3 10^3/uL (1.5-6.6); NEUTROPHILS % (AUTO) 53.9 %; PLT - PLATELET COUNT 319 10^3/uL (130-450); RED BLOOD COUNT 3.32 10^6/uL (4.70-6.10); RED CELL DISTRIBUTION WIDTH 13.4 % (12.0-15.0); WHITE BLOOD COUNT 6.1 x10^3/uL (4.8-10.8)
[2021-06-19 05:23] LABS: ALBUMIN 2.8 g/dL (3.2-5.5); BILIRUBIN,TOTAL 0.5 mg/dL (0.2-1.0); CALCIUM 8.1 mg/dL (8.5-10.3); CREATININE 1.2 mg/dL (0.6-1.2); POTASSIUM 4.3 mmol/L (3.5-5.0); TOTAL PROTEIN 5.7 g/dL (6.7-8.2)
[2021-06-19] MEDS: PANTOPRAZOLE 40 MG TABLET PO SCH (07:15)
[2021-06-19] MEDS ORDERED: RIVAROXABAN 15 MG TABLET PO SCH (08:00)
[2021-06-19] MEDS: lisinopriL 20 MG TABLET PO SCH (08:18)
[2021-06-19] MEDS: SODIUM CHLORIDE FLUSH 0.9% 10 ML SYRINGE IVP SCH (08:19)
[2021-06-19] MEDS ORDERED: polyethylene glycoL 3350 17 GM PACKET PO SCH (09:00)
[2021-06-19] MEDS: SODIUM CHLORIDE FLUSH 0.9% 10 ML SYRINGE IVP PRN (09:37)
--- NOTE | 2021-06-19 10:02 | Discharge Plan ---
Discharge Plan Problem Reviewed?: Yes Disposition: Home, Self Care Condition: Good Prescriptions: Amox/Clav 875/125 [Augmentin 875/125 Tab] 1 tablet PO Q12H 10 Days #20 tablet Diet: Regular Activity Restrictions: No Restrictions Shower Restrictions: No (No tub bath) Driving Restrictions: No No Smoking: If you smoke, Please STOP! Call for help. Follow-up with: Tc Craven MD [Provider Admit Priv/Credential] -
--- NOTE | 2021-06-19 10:06 | DISCHARGE SUMMARY ---
"Discharge Summary Admit Date: 06/17/21 Discharge Date: 06/19/21 Discharging Provider: Merissa Condition at Discharge: Good Discharge Disposition: 01 Home, Self Care - DIAGNOSES Admission Diagnoses: Pelvic abscess Discharge Diagnoses with Status of Each Condition: Improved - HPI History of Present Illness: 71 year old gentleman on Xarelto for chronic atrial fibrillation who underwent a laparoscopic appendectomy on June 02. He initially did well but has developed right sided abdominal pain and cramping over the past 2 weeks. He was seen in Urgent care and diagnosed with hematuria. He was subsequently had a CT scan showing a RLQ fluid collection consistent with blood. At that time he was noted to be afebrile with a WBC of 11 and was treated with Keflex. He improved in the short term. When the antibiotic course was completed, the symptos returned. He denies any fever at home but report cramping and right lower quadrant pain. He presented to the ED today with the same complaints. He was again found to have a WBC count of 11 and reassuring vital signs. CT scan shows 3 fluid collections in the right lower quadrant consistent with abscess or infected hematoma. He is admitted for further management. - CONSULTS | PROCEDURES Consultations: None Procedures: Image guided drain placement and pelvic abscess - HOSPITAL COURSE Hospital Course: Mr. Madden was transferred from the emergency department to the [facility] unit where he was given IV antibiotics and supportive care. On the day following admission he was seen in the interventional radiology suite where one fluid collection was aspirated and a second larger collection was aspirated with drain placement. He was noted to improve significantly within 24 hours of starting antibiotics and within 48 hours and following the drain placement his white count and differential were completely normal. He reports that he was feeling well and no longer felt ill. He is eating a regular diet without difficulty and walking the halls unassisted. He will be discharged to his home in the care of his family. Discharge medications will include 10 days of Augmentin. - ALLERGIES Allergies/Adverse Reactions: Allergies Allergy/AdvReac Type Severity Reaction Status Date / Time No Known Drug Allergies Allergy Verified 06/17/21 08:09 - MEDICATIONS Home Medications: Ambulatory Orders Medication Instructions Recorded Confirmed Gabapentin [Neurontin] 300 mg PO HS 06/02/21 06/17/21 Lisinopril [Zestril] 20 mg PO DAILY 06/02/21 06/17/21 Pramipexole [Mirapex] 0.5 mg PO DAILY PM 06/02/21 06/17/21 Rivaroxaban [Xarelto] 20 mg PO DAILY 06/02/21 06/17/21 oxyCODONE [Roxicodone] 5 mg PO Q4-6H PRN #14 tablet 06/02/21 06/17/21 Amox/Clav 875/125 [Augmentin 1 tablet PO Q12H 10 Days #20 tablet 06/19/21 875/125 Tab] - PHYSICAL EXAM AT DISCHARGE General Appearance: positive: No acute distress, Alert Eyes Bilateral: positive: Normal inspection ENT: positive: ENT inspection nml Neck: positive: Nml inspection Respiratory: positive: Chest non-tender, No respiratory distress Cardiovascular: positive: Regular rate & rhythm Abdomen: positive: Nml bowel sounds, Tenderness. negative: Guarding, Rebound Back: positive: Nml inspection Skin: positive: Color nml Extremities: positive: Non-tender Neurologic/Psychiatric: positive: Oriented x3 - LABS Result Diagrams: 06/19/21 04:32 06/19/21 04:32 - QUALITY (Female Hip Fx Only) Was patient sent home on osteoporosis medication?: No - FOLLOW UP Follow Up: History benefit we discharged with his drain in place. We should have culture results in the morning and I will call him once we receive those. I will plan to meet him in the clinic tomorrow for drain removal. - TIME SPENT Time Spent in Discharge (Minutes): 20"
[2021-06-19 10:40] VITALS: BP 143/73
== END 2021-06-19 11:20 | disposition home or self-care (01) | DRG 862 ==
LOC: ED 08:06 → MS2 12:26
PROVIDERS: ADMIT Surgery; ATTEND Surgery
PROC: 0W9J30Z Drainage of Pelvic Cavity with Drainage Device, Percutaneous Approach (ICD-10-PCS; principal; 2021-06-18)
DX: T81.43XA Infection following a procedure, organ and space surgical site, initial encounter (principal); K40.90 Unilateral inguinal hernia, without obstruction or gangrene, not specified as recurrent; K65.1 Peritoneal abscess; I10 Essential (primary) hypertension; I48.91 Unspecified atrial fibrillation; I48.20 Chronic atrial fibrillation, unspecified; G62.9 Polyneuropathy, unspecified; N40.0 Benign prostatic hyperplasia without lower urinary tract symptoms; Z79.01 Long term (current) use of anticoagulants; Z79.899 Other long term (current) drug therapy; Z87.891 Personal history of nicotine dependence; Z96.659 Presence of unspecified artificial knee joint
CPT/HCPCS: 36415; 49406; 74177; 80053; 81003; 83690; 85025; 85610; 85730; 87070; 87205; 87631; 99283; 99285; A9270; Q9967; 0202U; 81001; 87086

== ENCOUNTER 2021-07-03 11:37 | Outpatient (CLI) | payer MEDICARE, OTHER | END 2021-07-03 11:38 | disposition home or self-care (01) | LOC: LAB 11:37 | PROVIDERS: ATTEND Surgery | DX: Z53.9 Procedure and treatment not carried out, unspecified reason (principal) ==

== ENCOUNTER 2023-07-15 17:19 | Outpatient (CLI) | payer MEDICARE, OTHER ==
--- NOTE | 2023-07-16 17:24 | Ultrasound Report ---
PROCEDURE: Extremity Soft Tissue Limited INDICATIONS: LOWER EXTREMITY EDEMA - RT CALF LUMP. EVAL HEMATOMA TECHNIQUE: Real-time scanning was performed of the right calf, with image documentation. COMPARISON: None. FINDINGS: Sonographic images demonstrate a focus of echogenicity measuring 5.9 x 1.7 x 4.5 cm. No in creased vascularity. It is located approximately 7 mm from the skin surface. IMPRESSION: Focus of echogenicity within the subcutaneous tissues as above suspicious for hematoma. Abscess is al so part of the differential and recommend clinical correlation. Reviewed by: Modesta Tolentino MD on 07/16/2023 5:23 PM PDT Approved by: Modesta Tolentino MD on 07/16/2023 5:23 PM PDT Station ID: [id number]
== END 2023-07-15 17:20 | disposition home or self-care (01) ==
LOC: DI 17:19
PROVIDERS: ATTEND Nurse Practitioner Acute Care
DX: R60.0 Localized edema (principal)

== ENCOUNTER 2023-11-16 08:57 | Outpatient (CLI) | payer MEDICARE, OTHER ==
[2023-11-16 09:08] LABS: HCT - HEMATOCRIT 47.1 % (42.0-52.0); HGB - HEMOGLOBIN 15.2 g/dL (14.0-18.0); MEAN CORPUSCULAR HEMOGLOBIN 31.1 pg (27.0-31.0); MEAN CORPUSCULAR HGB CONC 32.3 g/dL (32.0-36.0); MEAN CORPUSCULAR VOLUME 96.3 fL (80.0-94.0); MEAN PLATELET VOLUME 9.7 fL (7.4-11.4); RED BLOOD COUNT 4.89 10^6/uL (4.70-6.10); RED CELL DISTRIBUTION WIDTH 14.5 % (12.0-15.0)
[2023-11-16 09:27] LABS: ALBUMIN/GLOBULIN RATIO 1.5 (1.0-2.2); ALKALINE PHOSPHATASE 40 IU/L (42-121); ALT ALANINE AMINOTRANSFERASE 13 IU/L (10-60); AST ASPARTATE AMINOTRANSFERASE 17 IU/L (10-42); BILIRUBIN,TOTAL 0.6 mg/dL (0.2-1.0); BUN - BLOOD UREA NITROGEN 27 mg/dL (6-20); CALCIUM 9.1 mg/dL (8.5-10.3); CARBON DIOXIDE - CO2 26 mmol/L (21-32); CHLORIDE 104 mmol/L (101-111); CHOL/HDL RATIO 2.7 (<5.0); CHOLESTEROL 148 mg/dL; CREATININE 1.1 mg/dL (0.6-1.3); GFR - MDRD 66 (>89); GLUCOSE 109 mg/dL (74-104); HDL CHOLESTEROL 55 mg/dL; LDL CHOLESTEROL,CALCULATED 72 mg/dL; LDL/HDL RATIO 1.3 (<3.6); POTASSIUM 4.1 mmol/L (3.5-4.5); SODIUM 136 mmol/L (135-145); TOTAL PROTEIN 6.7 g/dL (6.4-8.9); TRIGLYCERIDES 104 mg/dL; VLDL CHOLESTEROL 21 mg/dL
== END 2023-11-16 08:58 | disposition home or self-care (01) ==
LOC: LAB 08:57
PROVIDERS: ATTEND Surgery Vascular Surgery
DX: E78.2 Mixed hyperlipidemia (principal); I48.91 Unspecified atrial fibrillation
CPT/HCPCS: 36415; 80053; 80061; 83721; 85027